=== PATIENT | female | born 1975 | race Two or more races ===

== ENCOUNTER 2016-07-04 11:37 | Inpatient (IN) | payer SELFPAY ==
[~2016-07-04] VITALS: Ht 154.9 cm; Wt 96.3 kg
[2016-07-04] VITALS (14 sets, daily range): BP systolic 129–190; BP diastolic 56–85
[2016-07-04] MEDS ORDERED: IV NORMAL SALINE 1000ML BAG 1,000 ML IV SCH (12:16)
--- NOTE | 2016-07-04 12:18 | EKG ---
[facility] [address] [place] [address] Test Date: 2016-07-04 Test Time: 12:04:26 Pat Name: KIAH TAYLOR Department: Room: Gender: F Slip Tender: : 1975 Requested By: HAN REN Order Number: [id number] Reading MD: Measurements Intervals [place] Rate: 78 P: 42 WI: 148 QRS: 6 QRSD: 102 T: 138 QT: 392 QTc: 451 Interpretive Statements SINUS RHYTHM LEFT ATRIAL ABNORMALITY LVH WITH REPOLARIZATION ABNORMALITY RI6.01 Unconfirmed report No previous ECG available for comparison
[2016-07-04] MEDS ORDERED: ONDANSETRON PF 4 MG/2 ML VIAL. IV ONE (12:30)
[2016-07-04] MEDS: NICARDIPINE HCL 50 MG in IV NORMAL SALINE 250ML 250 ML IV PRN ×2 (12:33→17:58)
[2016-07-04] MEDS: FENTANYL PF 100 MCG/2 ML VIAL. IV PRN ×2 (12:34→17:57)
--- NOTE | 2016-07-04 12:37 | PHYS DOC ---
Past Medical History Past Medical History: Hypertension Past Surgical History: Alcohol Use: None Drug Use: None Adult General Chief Complaint Chief Complaint: HEADACHE HPI HPI Patient is a 40 year old female who presents with complaint of headache and right-sided pain that started yesterday. Patient states that her symptoms have progressed throughout the day today. Patient states that she has developed cramping in her right upper extremity and her right lower extremity. Patient denies any significant past medical history but states that she has had no episode in the past of sudden hypertension many years ago requiring treatment. Patient states that she is not on any blood pressure medication at this time. Patient denies any fevers, shortness of breath, or chest pain. Patient has not taken any medications to help with her symptoms. Patient rates her pain as 8 out of 10. Patient states that she has associated numbness in her right face and jaw. Review of Systems Review of Systems Constitutional: Denies fever or chills [] Eyes: Denies change in visual acuity, redness, or eye pain [] HENT: Denies nasal congestion or sore throat [] Respiratory: Denies cough or shortness of breath [] Cardiovascular: Denies chest pain or edema [] GI: Denies abdominal pain, nausea, vomiting, bloody stools or diarrhea [] : Denies dysuria or hematuria [] Musculoskeletal: Muscle cramping in right upper and lower extremity [] Integument: Denies rash or skin lesions [] Neurologic: Numbness in right face and jaw, headache [] Endocrine: Denies polyuria or polydipsia [] Current Medications Current Medications Current Medications Medications (Trade) Dose Ordered Sig/Amira Start Time Stop Time Status Last Admin Dose Admin Fentanyl Citrate 50 mcg 50 mcg PRN Q15MIN PRN 07/04/16 12:30 07/05/16 12:29 07/04/16 12:34 50 MCG Nicardipine HCl/ Sodium Chloride (Cardene/Iv Sodium Chloride 0.9% 250ml) 270 ml @ 0 mls/hr CONT PRN 07/04/16 12:15 07/04/16 12:33 25 MLS/HR Ondansetron HCl (Zofran) 4 mg 1X ONCE 07/04/16 12:30 07/04/16 12:31 DC 07/04/16 12:33 4 MG Sodium Chloride (Iv Sodium Chloride 0.9% 1000ml Bag) 1,000 ml @ 100 mls/hr Q10H 07/04/16 12:16 07/04/16 22:15 07/04/16 12:34 100 MLS/HR Allergies Allergies Allergies Coded Allergies Type Severity Reaction Last Updated Verified No Known Drug Allergies 07/04/16 No Physical Exam Physical Exam Constitutional: Alert, afebrile, hypertensive, appears in mild to moderate discomfort. [] HENT: Normocephalic, atraumatic, bilateral external ears normal, oropharynx moist, no oral exudates, nose normal. [] Eyes: PERRLA, EOMI, conjunctiva normal, no discharge. [] Neck: Normal range of motion, no tenderness, supple, no stridor. [] Cardiovascular:Heart rate regular rhythm, no murmur [] Lungs & Thorax: Bilateral breath sounds clear to auscultation [] Abdomen: Bowel sounds normal, soft, no tenderness, no masses, no pulsatile masses. [] Skin: Warm, dry, no erythema, no rash. [] Back: No tenderness, no CVA tenderness. [] Extremities: Right forearm and hand tenderness with muscle tightness, no cyanosis, no clubbing, ROM intact, no edema. [] Neurologic: Alert and oriented X 3, 4 out of 5 associate counsel strength in right hand, negative pronator drift, decreased sensation along right face to light touch. [] Current Patient Data Vital Signs Vital Signs Date Time Temp Pulse Resp B/P Pulse Ox O2 Delivery O2 Flow Rate FiO2 07/04/16 11:50 98.2 79 20 281/154 99 Room Air 98.2 Lab Values Laboratory Tests Test 07/04/16 12:04 07/04/16 12:13 White Blood Count 6.2x10^3/uL (4.0-11.0) Red Blood Count 4.96x10^6/uL (3.50-5.40) Hemoglobin 12.4g/dL (12.0-15.5) Hematocrit 37.9% (36.0-47.0) Mean Corpuscular Volume 77fL (79-100) L Mean Corpuscular Hemoglobin 25pg (25-35) Mean Corpuscular Hemoglobin Concent 33g/dL (31-37) Red Cell Distribution Width 15.0% (11.5-14.5) H Platelet Count 205x10^3/uL (140-400) Neutrophils (%) (Auto) 65% (31-73) Lymphocytes (%) (Auto) 23% (24-48) L Monocytes (%) (Auto) 9% (0-9) Eosinophils (%) (Auto) 2% (0-3) Basophils (%) (Auto) 1% (0-3) Neutrophils # (Auto) 4.0x10^3uL (1.8-7.7) Lymphocytes # (Auto) 1.4x10^3/uL (1.0-4.8) Monocytes # (Auto) 0.6x10^3/uL (0.0-1.1) Eosinophils # (Auto) 0.1x10^3/uL (0.0-0.7) Basophils # (Auto) 0.0x10^3/uL (0.0-0.2) Prothrombin Time 12.6SEC (11.7-14.0) Prothrombin Time INR 1.0 (0.8-1.1) Sodium Level 143mmol/L (136-145) Potassium Level 3.6mmol/L (3.5-5.1) Chloride Level 106mmol/L (98-107) Carbon Dioxide Level 30mmol/L (21-32) Anion Gap 7 (6-14) Blood Urea Nitrogen 13mg/dL (7-20) Creatinine 0.8mg/dL (0.6-1.0) Estimated GFR (Cockcroft-Gault) 80.3 Glucose Level 93mg/dL (70-99) Calcium Level 8.9mg/dL (8.5-10.1) Magnesium Level 1.9mg/dL (1.8-2.4) Total Bilirubin 0.4mg/dL (0.2-1.0) Direct Bilirubin 0.1mg/dL (0.0-0.2) Aspartate Amino Transferase (AST) 14U/L (15-37) L Alanine Aminotransferase (ALT) 14U/L (14-59) Alkaline Phosphatase 77U/L (46-116) Creatine Kinase 111U/L (26-192) Creatine Kinase MB (Mass) 0.8ng/mL (0.0-3.6) Creatine Kinase MB Relative Index 0.7% (0-4) Troponin I Quantitative 0.018ng/mL (0.000-0.055) KC-Duj-B-Type Natriuretic Peptide 2308pg/mL (0-124) H Total Protein 7.3g/dL (6.4-8.2) Albumin 3.5g/dL (3.4-5.0) Thyroid Stimulating Hormone (TSH) 1.561uIU/mL (0.358-3.74) POC Troponin I 0.00ng/ml (<0.08) Laboratory Tests 07/04/16 12:04 Laboratory Tests 07/04/16 12:04 EKG EKG Interpreted by me: Heart rate 78, sinus rhythm, normal intervals, normal axis, T -wave inversions in the lateral leads, no acute ST elevations or depressions [] Radiology/Procedures Radiology/Procedures [facility] [address] [place] [address] IMAGING REPORT Signed PATIENT: KIAH TAYLOR ACCOUNT: [id number] : 1975 LOCATION: [address] [place] [address] AGE: 40 SEX: F EXAM STATUS: ADM IN ORD. PHYSICIAN: HAN REN MD REASON: headache, malignant hypertension PROCEDURE: HEAD WO CONTRAST EXAM: CT head without contrast. HISTORY: Headache, hypertension. TECHNIQUE: Computed tomography of the head was performed without intravenous contrast. COMPARISON: None. FINDINGS: There is a 6 x 5 mm hemorrhage within the left thalamus with mild surrounding edema. There is no significant mass effect. Longoria-white differentiation is preserved elsewhere. The ventricles are normal in size and position. The visualized paranasal sinuses appear clear. The orbits are unremarkable. The temporal bones are unremarkable. The calvarium reveals no suspicious lesions. IMPRESSION: 1. 6 x 5 mm hemorrhage within the left thalamus with mild surrounding vasogenic edema. These findings were called to Dr. Ren by Walter Bey on 07/04/2016 at 1330. *One or more of the following individualized dose reduction techniques were utilized for this examination: 1. Automated exposure control. 2. Adjustment of the mA and/or kV according to patient size. 3. Use of iterative reconstruction technique. DICTATED and SIGNED BY: TONEY BEY MD DATE: 07/04/16 1332 CC: HAN REN MD; ADAMS OLSEN MD ~ [facility] [address] [place], [place] [id number] IMAGING REPORT Signed PATIENT: KIAH TAYLOR ACCOUNT: [id number] : 1975 LOCATION: [address] [place] [address] AGE: 40 SEX: F EXAM STATUS: ADM IN ORD. PHYSICIAN: HAN REN MD REASON: critical hypertension, headache, rule out acute cardiopulmonary abnormality PROCEDURE: PORTABLE CHEST 1V Portable chest, 07/04/2016: History: Hypertension, headache The heart is mildly enlarged. The pulmonary vascularity is normal. No pulmonary infiltrates are seen. There is no evidence of pleural fluid. IMPRESSION: 1. Cardiomegaly. 2. No acute abnormality is detected. DICTATED and SIGNED BY: VADIM REECE MD DATE: 07/04/16 1256 CC: HAN REN MD; ADAMS OLSEN MD ~ [] Course & Med Decision Making Course & Med Decision Making Pertinent Labs and Imaging studies reviewed. (See chart for details) The patient was started on a Cardene drip in the emergency department. CT scan revealed evidence of hemorrhagic stroke. I consulted Dr. Perez of neurosurgery who agreed with rapid control of blood pressure and further nonoperative management at this time. He agreed to follow with patient in hospital. I also consulted Dr. Espitia of cardiology to follow patient in hospital. Patient was admitted to Dr. Hughes and transferred to ICU for further care. Critical care time excluding procedures: 45 minutes Dragon Disclaimer Dragon Disclaimer This electronic medical record was generated, in whole or in part, using a voice recognition dictation system. Departure Departure Impression: Primary Impression: Hemorrhagic cerebrovascular accident (CVA) Additional Impression: Malignant hypertension Disposition: ADMITTED INPATIENT Admitting Physician: Gladys Hughes Condition: GUARDED Referrals: ADAMS OLSEN MD (PCP) Problem Qualifiers HAN REN MD Jul 04, 2016 12:37
[2016-07-04 12:43] LABS: BASO % 1 % (0-3); EOS % 2 % (0-3); HEMATOCRIT 37.9 % (36.0-47.0); HEMOGLOBIN 12.4 g/dL (12.0-15.5); LYMPH # 1.4 x10^3/uL (1.0-4.8); LYMPH % 23 % (24-48); MEAN CORPUSCULAR HEMOGLOBIN 25 pg (25-35); MEAN CORPUSCULAR HGB CONC 33 g/dL (31-37); MEAN CORPUSCULAR VOLUME 77 fL (79-100); MONO % 9 % (0-9); NEUT % 65 % (31-73); PLATELET COUNT 205 x10^3/uL (140-400); RED BLOOD COUNT 4.96 x10^6/uL (3.50-5.40); WHITE BLOOD COUNT 6.2 x10^3/uL (4.0-11.0)
[2016-07-04 12:45] LABS: CALCIUM 8.9 mg/dL (8.5-10.1); CREATININE 0.8 mg/dL (0.6-1.0); GFR 80.3; POTASSIUM 3.6 mmol/L (3.5-5.1)
[2016-07-04 12:50] LABS: ALBUMIN 3.5 g/dL (3.4-5.0); DIRECT BILIRUBIN 0.1 mg/dL (0.0-0.2); MAGNESIUM 1.9 mg/dL (1.8-2.4); TOTAL BILIRUBIN 0.4 mg/dL (0.2-1.0); TOTAL PROTEIN 7.3 g/dL (6.4-8.2)
[2016-07-04 12:54] LABS: PROTHROMBIN TIME PATIENT 12.6 SEC (11.7-14.0)
[2016-07-04 12:58] LABS: CKMB INDEX 0.7 % (0-4); CKMB MASS 0.8 ng/mL (0.0-3.6)
--- NOTE | 2016-07-04 12:59 | RAD ---
Portable chest, 07/04/2016: History: Hypertension, headache The heart is mildly enlarged. The pulmonary vascularity is normal. No pulmonary infiltrates are seen. There is no evidence of pleural fluid. IMPRESSION: 1. Cardiomegaly. 2. No acute abnormality is detected.
--- NOTE | 2016-07-04 13:07 | ACF ---
Admission Forms Criteria HEADACHES Clinical Indications for Admission to Inpatient Care (Place 'X' for any and all applicable criteria): Admission is indicated for ANY ONE of the following(1)(2)(3)(4): [X]I. Inpatient admission required rather than observational care (Also use Headaches: Observation Care as appropriate) because of ANY ONE of the following: [X]a) Severe pain requiring acute inpatient management [ ]b) Altered mental status that is severe or persistent [ ]c) Vomiting or dehydration that is severe or persistent [ ]d) New-onset focal neurologic deficit that is severe or persistent [X]e) Hypertension requiring inpatient treatment [ ]f) Severe (new) neurologic findings requiring inpatient care as indicated by ANY ONE of following(9)(10): [ ]1) Papilledema [ ]2) Cerebral edema [ ]3) Mass effect on CT scan [ ]4) Cerebral bleeding, ischemia, or vasospasm(16) [ ]5) Hydrocephalus(17) [ ]6) Uncontrolled seizures [ ]g) IV infusion of anticoagulation, platelet inhibitors vasoactive, or antiarrhythmic medication. [ ]h) Cerebral bleeding, hydrocephalus, or vasospasm monitoring (16) [ ]i) Increased intracranial pressure or cerebral edema monitoring (17) [ ]j) Other condition, treatment or monitoring requiring inpatient admission [ ]II. Unruptured but threatening aneurysm or vascular malformation [ ]III. Venous sinus thrombosis [ ]IV. Increased intracranial pressure [ ]V. Cerebral spinal fluid leak with decreased intracranial pressure [ ]. Medication-overuse headache that has failed all outpatient management options [ ]VII. Vasculitis (eg, giant cell (temporal) arteritis, central nervous system vasculitis) requiring IV corticosteroids, IV antithrombotic therapy, or inpatient monitoring (eg, visual symptoms or findings, other ischemic manifestations)[A](10)(11) Extended stay beyond goal length of stay may be needed for (27): [ ]a) Intractable migraine [ ]b) Subarachnoid or intracranial hemorrhage [ ]c) Malignant hypertension [ ]d) Detoxification from drug withdrawal in medication-overuse headache (29) The original [facility] content created by [facility] [employer] has been revised. The portions of the content which have been revised are identified through the use of italic text or in bold, and [employer] has neither reviewed nor approved the modified material.All other unmodified content is copyright [facility]. Please see references footnoted in the original [facility] edition 2016 Admission Criteria Met?: Yes DORIAN AC Jul 04, 2016 13:07
--- NOTE | 2016-07-04 13:38 | RAD ---
EXAM: CT head without contrast. HISTORY: Headache, hypertension. TECHNIQUE: Computed tomography of the head was performed without intravenous contrast. COMPARISON: None. FINDINGS: There is a 6 x 5 mm hemorrhage within the left thalamus with mild surrounding edema. There is no significant mass effect. Longoria-white differentiation is preserved elsewhere. The ventricles are normal in size and position. The visualized paranasal sinuses appear clear. The orbits are unremarkable. The temporal bones are unremarkable. The calvarium reveals no suspicious lesions. IMPRESSION: 1. 6 x 5 mm hemorrhage within the left thalamus with mild surrounding vasogenic edema. These findings were called to Dr. Valdez by Walter Bey on 07/04/2016 at 1330. *One or more of the following individualized dose reduction techniques were utilized for this examination: 1. Automated exposure control. 2. Adjustment of the mA and/or kV according to patient size. 3. Use of iterative reconstruction technique.
[2016-07-04] MEDS: IV NORMAL SALINE 1000ML BAG 1,000 ML IV SCH ×2 (13:45→22:42)
[2016-07-04] MEDS ORDERED: FENTANYL PF 100 MCG/2 ML VIAL. IV PRN (13:45)
[2016-07-04] MEDS ORDERED: ACETAMINOPHEN 325 MG TABLET. PO PRN (13:45)
[2016-07-04] MEDS ORDERED: ONDANSETRON PF 4 MG/2 ML VIAL. IV PRN ×2 (13:45→14:30)
[2016-07-04 13:48] LABS: BILIRUBIN,URINE NEGATIVE (NEG); GLUCOSE,URINE NEGATIVE (NEG); NITRITE,URINE NEGATIVE (NEG); PH,URINE 7.5; PROTEIN,URINE NEGATIVE (NEG-TRACE); UROBILINOGEN,URINE 0.2 mg/dL (0.2 mg/dL)
[2016-07-04 13:51] LABS: BARBITURATES NEG (NEG); BENZODIAZEPINES NEG (NEG); CANNABINOIDS NEG (NEG); COCAINE NEG (NEG); METHADONE NEG (NEG); OPIATES NEG (NEG); PHENCYCLIDINE NEG (NEG)
[2016-07-04 13:53] LABS: ETHANOL, URINE NEG (NEG)
[2016-07-04 14:09] LABS: BACTERIA,URINE 0 /HPF (0-FEW); SQUAMOUS EPITHELIAL CELL,UR OCC /LPF; WBC,URINE OCC /HPF (0-4)
--- NOTE | 2016-07-04 14:26 | PDOC1 ---
History and Physical Date of Admission Date of Admission 07/04/16 Identification/Chief Complaint Chief Complaint right side numbness Problems: Source Source: Chart review, Patient History of Present Illness History of Present Illness HPI HPI Patient is a 40 year old female who presents with complaint of headache and right-sided pain that started yesterday. P pT HAS HTN ON 4meds before, but not taking it coz not seeing any pcp anymore. Sinhala speaking. she started to have headache 3 ds ago, worse yesterday, with right side facial, arm and leg numbness, tingling, and weakness. speech, swallow is ok. + NAusea, no vomiting, + cough wo sputum. no fever, chills, diarrhea, constipation. PE right side weakness. BP >280 CT . 6 x 5 mm hemorrhage within the left thalamus with mild surrounding vasogenic edema. Past Medical History Cardiovascular: HTN Past Surgical History Past Surgical History: Family History Family History: Hypertension Social History Smoke: No ALCOHOL: none Drugs: None Current Problem List Problem List Problems Medical Problems: (1) Hemorrhagic cerebrovascular accident (CVA) Status: Acute (2) Malignant hypertension Status: Acute Current Medications Current Medications Current Medications Medications (Trade) Dose Ordered Sig/Amira Start Time Stop Time Status Last Admin Dose Admin Acetaminophen (Tylenol) 650 mg PRN Q4HRS PRN 07/04/16 13:45 07/05/16 13:44 Fentanyl Citrate (Fentanyl 2ml Vial) 50 mcg PRN Q15MIN PRN 07/04/16 12:30 07/05/16 12:29 07/04/16 12:34 50 MCG Fentanyl Citrate 50 mcg 50 mcg PRN Q2HR PRN 07/04/16 13:45 07/05/16 13:44 Nicardipine HCl/ Sodium Chloride (Cardene/Iv Sodium Chloride 0.9% 250ml) 270 ml @ 0 mls/hr CONT PRN 07/04/16 12:15 07/04/16 12:33 25 MLS/HR Ondansetron HCl (Zofran) 4 mg PRN Q8HRS PRN 07/04/16 13:45 07/05/16 13:44 Sodium Chloride (Iv Sodium Chloride 0.9% 1000ml Bag) 1,000 ml @ 100 mls/hr Q10H 07/04/16 13:45 07/05/16 13:44 Allergies Allergies Allergies Coded Allergies Type Severity Reaction Last Updated Verified No Known Drug Allergies 07/04/16 No ROS Review of System CONSTITUTIONAL: No fever or chills EYES: No recent changes SKIN: No rash or itching CARDIOVASCULAR: No chest pain, syncope, palpitations, or edema RESPIRATORY: No SOB or cough GASTROINTESTINAL: No nausea, vomiting or abdominal pain NEUROLOGICAL: No headaches or weakness ENDOCRINE: No cold or heat intolerance GENITOURINARY: No urgency or frequency of urination MUSCULOSKELETAL: No back pain or joint pain LYMPHATICS: No enlarged lymph nodes PSYCHIATRIC: No anxiety or depression Physical Exam Physical Exam GEN.: No apparent distress. Alert and oriented. HEENT: Head is normocephalic, atraumatic NECK: Supple. LUNGS: Clear to auscultation. HEART: RRR, S1, S2 present. Peripheral pulses intact ABDOMEN: Soft, nontender. Positive bowel sounds. EXTREMITIES: Without any cyanosis. NEUROLOGIC: Normal speech, normal tone. right side upper , lower ext weaker , 2/5, left side ok. sensation ok tongue towards to left side. PSYCHIATRIC: Normal affect, normal mood. SKIN: No ulcerations Vitals Vitals Vital Signs Date Time Temp Pulse Resp B/P Pulse Ox O2 Delivery O2 Flow Rate FiO2 07/04/16 13:07 78 26 169/91 99 07/04/16 12:45 Room Air 07/04/16 11:50 98.2 98.2 Labs Labs Laboratory Tests Test 07/04/16 12:04 07/04/16 12:13 07/04/16 13:20 07/04/16 13:25 White Blood Count 6.2x10^3/uL (4.0-11.0) Red Blood Count 4.96x10^6/uL (3.50-5.40) Hemoglobin 12.4g/dL (12.0-15.5) Hematocrit 37.9% (36.0-47.0) Mean Corpuscular Volume 77fL (79-100) Mean Corpuscular Hemoglobin 25pg (25-35) Mean Corpuscular Hemoglobin Concent 33g/dL (31-37) Red Cell Distribution Width 15.0% (11.5-14.5) Platelet Count 205x10^3/uL (140-400) Neutrophils (%) (Auto) 65% (31-73) Lymphocytes (%) (Auto) 23% (24-48) Monocytes (%) (Auto) 9% (0-9) Eosinophils (%) (Auto) 2% (0-3) Basophils (%) (Auto) 1% (0-3) Neutrophils # (Auto) 4.0x10^3uL (1.8-7.7) Lymphocytes # (Auto) 1.4x10^3/uL (1.0-4.8) Monocytes # (Auto) 0.6x10^3/uL (0.0-1.1) Eosinophils # (Auto) 0.1x10^3/uL (0.0-0.7) Basophils # (Auto) 0.0x10^3/uL (0.0-0.2) Prothrombin Time 12.6SEC (11.7-14.0) Prothromb Time International Ratio 1.0 (0.8-1.1) Sodium Level 143mmol/L (136-145) Potassium Level 3.6mmol/L (3.5-5.1) Chloride Level 106mmol/L (98-107) Carbon Dioxide Level 30mmol/L (21-32) Anion Gap 7 (6-14) Blood Urea Nitrogen 13mg/dL (7-20) Creatinine 0.8mg/dL (0.6-1.0) Estimated GFR (Cockcroft-Gault) 80.3 Glucose Level 93mg/dL (70-99) Calcium Level 8.9mg/dL (8.5-10.1) Magnesium Level 1.9mg/dL (1.8-2.4) Total Bilirubin 0.4mg/dL (0.2-1.0) Direct Bilirubin 0.1mg/dL (0.0-0.2) Aspartate Amino Transf (AST/SGOT) 14U/L (15-37) Alanine Aminotransferase (ALT/SGPT) 14U/L (14-59) Alkaline Phosphatase 77U/L (46-116) Creatine Kinase 111U/L (26-192) Creatine Kinase MB (Mass) 0.8ng/mL (0.0-3.6) Creatine Kinase MB Relative Index 0.7% (0-4) Troponin I Quantitative 0.018ng/mL (0.000-0.055) LL-Aum-Q-Type Natriuretic Peptide 2308pg/mL (0-124) Total Protein 7.3g/dL (6.4-8.2) Albumin 3.5g/dL (3.4-5.0) Bedside Troponin I 0.00ng/ml (<0.08) Urine Color Yellow Urine Clarity Clear Urine pH 7.5 Urine Specific [place] 1.010 Urine Protein Negativemg/dL (NEG-TRACE) Urine Glucose (UA) Negativemg/dL (NEG) Urine Ketones (Stick) Negativemg/dL (NEG) Urine Blood Trace (NEG) Urine Nitrite Negative (NEG) Urine Bilirubin Negative (NEG) Urine Urobilinogen Dipstick 0.2mg/dL (0.2 mg/dL) Urine Leukocyte Esterase Negative (NEG) Urine RBC 1-2/HPF (0-2) Urine WBC Occ/HPF (0-4) Urine Squamous Epithelial Cells Occ/LPF Urine Amorphous Sediment Present/HPF Urine Bacteria 0/HPF (0-FEW) Urine Mucus Mod/LPF Urine Opiates Screen Neg (NEG) Urine Methadone Screen Neg (NEG) Urine Barbiturates Neg (NEG) Urine Phencyclidine Screen Neg (NEG) Urine Amphetamine/Methamphetamine Neg (NEG) Urine Benzodiazepines Screen Neg (NEG) Urine Cocaine Screen Neg (NEG) Urine Cannabinoids Screen Neg (NEG) Urine Ethyl Alcohol Neg (NEG) Bedside Urine HCG, Qualitative Hcg negative (Negative) Laboratory Tests Test 07/04/16 12:04 07/04/16 12:13 07/04/16 13:20 07/04/16 13:25 White Blood Count 6.2x10^3/uL (4.0-11.0) Red Blood Count 4.96x10^6/uL (3.50-5.40) Hemoglobin 12.4g/dL (12.0-15.5) Hematocrit 37.9% (36.0-47.0) Mean Corpuscular Volume 77fL (79-100) Mean Corpuscular Hemoglobin 25pg (25-35) Mean Corpuscular Hemoglobin Concent 33g/dL (31-37) Red Cell Distribution Width 15.0% (11.5-14.5) Platelet Count 205x10^3/uL (140-400) Neutrophils (%) (Auto) 65% (31-73) Lymphocytes (%) (Auto) 23% (24-48) Monocytes (%) (Auto) 9% (0-9) Eosinophils (%) (Auto) 2% (0-3) Basophils (%) (Auto) 1% (0-3) Neutrophils # (Auto) 4.0x10^3uL (1.8-7.7) Lymphocytes # (Auto) 1.4x10^3/uL (1.0-4.8) Monocytes # (Auto) 0.6x10^3/uL (0.0-1.1) Eosinophils # (Auto) 0.1x10^3/uL (0.0-0.7) Basophils # (Auto) 0.0x10^3/uL (0.0-0.2) Prothrombin Time 12.6SEC (11.7-14.0) Prothromb Time International Ratio 1.0 (0.8-1.1) Sodium Level 143mmol/L (136-145) Potassium Level 3.6mmol/L (3.5-5.1) Chloride Level 106mmol/L (98-107) Carbon Dioxide Level 30mmol/L (21-32) Anion Gap 7 (6-14) Blood Urea Nitrogen 13mg/dL (7-20) Creatinine 0.8mg/dL (0.6-1.0) Estimated GFR (Cockcroft-Gault) 80.3 Glucose Level 93mg/dL (70-99) Calcium Level 8.9mg/dL (8.5-10.1) Magnesium Level 1.9mg/dL (1.8-2.4) Total Bilirubin 0.4mg/dL (0.2-1.0) Direct Bilirubin 0.1mg/dL (0.0-0.2) Aspartate Amino Transf (AST/SGOT) 14U/L (15-37) Alanine Aminotransferase (ALT/SGPT) 14U/L (14-59) Alkaline Phosphatase 77U/L (46-116) Creatine Kinase 111U/L (26-192) Creatine Kinase MB (Mass) 0.8ng/mL (0.0-3.6) Creatine Kinase MB Relative Index 0.7% (0-4) Troponin I Quantitative 0.018ng/mL (0.000-0.055) JB-Ivp-Y-Type Natriuretic Peptide 2308pg/mL (0-124) Total Protein 7.3g/dL (6.4-8.2) Albumin 3.5g/dL (3.4-5.0) Bedside Troponin I 0.00ng/ml (<0.08) Urine Color Yellow Urine Clarity Clear Urine pH 7.5 Urine Specific [place] 1.010 Urine Protein Negativemg/dL (NEG-TRACE) Urine Glucose (UA) Negativemg/dL (NEG) Urine Ketones (Stick) Negativemg/dL (NEG) Urine Blood Trace (NEG) Urine Nitrite Negative (NEG) Urine Bilirubin Negative (NEG) Urine Urobilinogen Dipstick 0.2mg/dL (0.2 mg/dL) Urine Leukocyte Esterase Negative (NEG) Urine RBC 1-2/HPF (0-2) Urine WBC Occ/HPF (0-4) Urine Squamous Epithelial Cells Occ/LPF Urine Amorphous Sediment Present/HPF Urine Bacteria 0/HPF (0-FEW) Urine Mucus Mod/LPF Urine Opiates Screen Neg (NEG) Urine Methadone Screen Neg (NEG) Urine Barbiturates Neg (NEG) Urine Phencyclidine Screen Neg (NEG) Urine Amphetamine/Methamphetamine Neg (NEG) Urine Benzodiazepines Screen Neg (NEG) Urine Cocaine Screen Neg (NEG) Urine Cannabinoids Screen Neg (NEG) Urine Ethyl Alcohol Neg (NEG) Bedside Urine HCG, Qualitative Hcg negative (Negative) VTE Prophylaxis Ordered VTE Prophylaxis Devices: Yes VTE Pharmacological Prophylaxi: No Assessment/Plan Assessment/Plan 1. 6 x 5 mm hemorrhage within the left thalamus with mild surrounding vasogenic edema. 2. right side weakness, numbness 2/2 1 3. HTN emergency plan: 1. neuro, neurosx consult 2. on nicardipine drip 3. iCU 4. add lisinopril, amlodipine for now gi ppx neuro check check renal A US PTOT CAMPBELL RAMIREZ MD Jul 04, 2016 14:26
[2016-07-04] MEDS ORDERED: AMLODIPINE BESYLATE 10 MG TABLET PO SCH (15:00)
--- NOTE | 2016-07-04 15:08 | PDOC2 ---
CARDIAC CONSULT DATE OF CONSULT Date of Consult DATE: 07/04/16 TIME: 14:47 REASON FOR CONSULT Reason for Consult: Malignant HTN, CVA REFERRING PHYSICIAN Referring Physician: Courtney SOURCE Source: Chart review, Patient HISTORY OF PRESENT ILLNESS HISTORY OF PRESENT ILLNESS This is a pleasant 40 yo female admitted for complains of stroke symptoms and noted very high blood pressure. 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 Also noted throbbing right unilateral head with black floaters in her visual field. Also cramping to her right arm and right leg but denies any chest pain, dizziness. She is significant for past history of HTN particularly during her pregnancies. Denies any recreational drug use, tobacco , ETOH. She does not take energy drinks or any routine home medications. Denies any past hypothyroidism, no past ELLE. Denies any CVA, migraines or family hx of aneurysm. No DM nor gestational DM. Currently her PERERA better but remains to have right side face tingling/numbness PAST MEDICAL HISTORY Past Medical History PIH otherwise no other medical history Grav: 5 Para: 3 PAST SURGICAL HISTORY Past Surgical History: (x1) FAMILY HISTORY Family History: Heart Disease (both parents) SOCIAL HISTORY Smoke: No ALCOHOL: none Drugs: None Lives: with Family CURRENT MEDICATIONS CURRENT MEDICATIONS Current Medications Medications (Trade) Dose Ordered Sig/Amira Route PRN Reason Start Time Stop Time Status Last Admin Dose Admin Nicardipine HCl/ Sodium Chloride (Cardene/Iv Sodium Chloride 0.9% 250ml) 270 ml @ 0 mls/hr CONT PRN IV ELEVATED BP, SEE COMMENTS 07/04/16 12:15 07/04/16 12:33 Fentanyl Citrate 50 mcg 50 mcg PRN Q15MIN PRN IV PAIN GREATER THAN 07/0507/04/16 12:30 07/05/16 12:29 07/04/16 12:34 Sodium Chloride (Iv Sodium Chloride 0.9% 1000ml Bag) 1,000 ml @ 100 mls/hr Q10H IV 07/04/16 12:16 07/04/16 22:15 07/04/16 12:34 Ondansetron HCl (Zofran) 4 mg 1X ONCE IV 07/04/16 12:30 07/04/16 12:31 DC 07/04/16 12:33 ALLERGIES ALLERGIES: Coded Allergies: No Known Drug Allergies (Unverified , 07/04/16) ROS Review of System 14 point ROS evaluated with pertinent positives noted per HPI PHYSICAL EXAM General: Alert, Oriented X3, Cooperative, No acute distress HEENT: Atraumatic, Mucous membr. moist/pink, Other Lungs: Clear to auscultation, Normal air movement Heart: Regular rate, Normal S1, Normal S2, Other (4/6 sytolic murmur to LLS and [place] border; bounding peripheral pulses) Abdomen: Soft, No tenderness Extremities: No cyanosis, No edema Skin: No breakdown, No significant lesion Neuro: Normal speech, Sensation intact Psych/Mental Status: Mental status NL, Mood NL MUSCULOSKELETAL: Osteoarthritic changes both hands VITALS VITALS Vital Signs Date Time Temp Pulse Resp B/P Pulse Ox O2 Delivery O2 Flow Rate FiO2 07/04/16 13:07 78 26 169/91 99 07/04/16 12:45 Room Air 07/04/16 11:50 98.2 98.2 LABS Lab: Laboratory Tests Test 07/04/16 12:04 07/04/16 12:13 07/04/16 13:20 07/04/16 13:25 White Blood Count 6.2x10^3/uL (4.0-11.0) Red Blood Count 4.96x10^6/uL (3.50-5.40) Hemoglobin 12.4g/dL (12.0-15.5) Hematocrit 37.9% (36.0-47.0) Mean Corpuscular Volume 77fL (79-100) Mean Corpuscular Hemoglobin 25pg (25-35) Mean Corpuscular Hemoglobin Concent 33g/dL (31-37) Red Cell Distribution Width 15.0% (11.5-14.5) Platelet Count 205x10^3/uL (140-400) Neutrophils (%) (Auto) 65% (31-73) Lymphocytes (%) (Auto) 23% (24-48) Monocytes (%) (Auto) 9% (0-9) Eosinophils (%) (Auto) 2% (0-3) Basophils (%) (Auto) 1% (0-3) Neutrophils # (Auto) 4.0x10^3uL (1.8-7.7) Lymphocytes # (Auto) 1.4x10^3/uL (1.0-4.8) Monocytes # (Auto) 0.6x10^3/uL (0.0-1.1) Eosinophils # (Auto) 0.1x10^3/uL (0.0-0.7) Basophils # (Auto) 0.0x10^3/uL (0.0-0.2) Prothrombin Time 12.6SEC (11.7-14.0) Prothromb Time International Ratio 1.0 (0.8-1.1) Sodium Level 143mmol/L (136-145) Potassium Level 3.6mmol/L (3.5-5.1) Chloride Level 106mmol/L (98-107) Carbon Dioxide Level 30mmol/L (21-32) Anion Gap 7 (6-14) Blood Urea Nitrogen 13mg/dL (7-20) Creatinine 0.8mg/dL (0.6-1.0) Estimated GFR (Cockcroft-Gault) 80.3 Glucose Level 93mg/dL (70-99) Calcium Level 8.9mg/dL (8.5-10.1) Magnesium Level 1.9mg/dL (1.8-2.4) Total Bilirubin 0.4mg/dL (0.2-1.0) Direct Bilirubin 0.1mg/dL (0.0-0.2) Aspartate Amino Transf (AST/SGOT) 14U/L (15-37) Alanine Aminotransferase (ALT/SGPT) 14U/L (14-59) Alkaline Phosphatase 77U/L (46-116) Creatine Kinase 111U/L (26-192) Creatine Kinase MB (Mass) 0.8ng/mL (0.0-3.6) Creatine Kinase MB Relative Index 0.7% (0-4) Troponin I Quantitative 0.018ng/mL (0.000-0.055) XP-Duk-U-Type Natriuretic Peptide 2308pg/mL (0-124) Total Protein 7.3g/dL (6.4-8.2) Albumin 3.5g/dL (3.4-5.0) Bedside Troponin I 0.00ng/ml (<0.08) Urine Color Yellow Urine Clarity Clear Urine pH 7.5 Urine Specific [place] 1.010 Urine Protein Negativemg/dL (NEG-TRACE) Urine Glucose (UA) Negativemg/dL (NEG) Urine Ketones (Stick) Negativemg/dL (NEG) Urine Blood Trace (NEG) Urine Nitrite Negative (NEG) Urine Bilirubin Negative (NEG) Urine Urobilinogen Dipstick 0.2mg/dL (0.2 mg/dL) Urine Leukocyte Esterase Negative (NEG) Urine RBC 1-2/HPF (0-2) Urine WBC Occ/HPF (0-4) Urine Squamous Epithelial Cells Occ/LPF Urine Amorphous Sediment Present/HPF Urine Bacteria 0/HPF (0-FEW) Urine Mucus Mod/LPF Urine Opiates Screen Neg (NEG) Urine Methadone Screen Neg (NEG) Urine Barbiturates Neg (NEG) Urine Phencyclidine Screen Neg (NEG) Urine Amphetamine/Methamphetamine Neg (NEG) Urine Benzodiazepines Screen Neg (NEG) Urine Cocaine Screen Neg (NEG) Urine Cannabinoids Screen Neg (NEG) Urine Ethyl Alcohol Neg (NEG) Bedside Urine HCG, Qualitative Hcg negative (Negative) ASSESSMENT/PLAN ASSESSMENT/PLAN 1. Malignant HTN: initial reading of 281/154, suspect hypertensive heart disease. EKG SR with LVH. 2. Hemorrhagic CVA: 6 x 5 mm hemorrhage within the left thalamus with mild surrounding vasogenic edema per CT. Related to #1 3. Right unilateral PERERA with facial paresthesia/visual floaters: related to #2 Recommendations 1. Continue with cardene, titrate as warranted, Maintain BP at high end of normal, 2. BP parameters to defer to neurosurgery/neurology 3. TSH, lipid panel 4. TTE 5. Obtain bedside swallow eval before starting any po regimen. 6. Renal duplex pending Problems: RIC WILKERSON APRN Jul 04, 2016 15:08
[2016-07-04] MEDS ORDERED: IOHEXOL 350 MG/ML 100ML VIAL. IV ONE (16:45)
[2016-07-04] MEDS ORDERED: CONTRAST GIVEN MC PRN (17:00)
--- NOTE | 2016-07-04 17:50 | PDOC2 ---
NEUROLOGY CONSULT Date of Admission Date of Admission DATE: 07/04/16 TIME: 17:32 Reason for Consult Reason for Consult: IMPRESSION: Acute left thalamus 6 mm x 5 mm hemorrhage with surrounding vasogenic edema. Hypertensive encephalopathy. Hypertensive emergency, BP 281/154 mmHg. Malignant HTN, not treated. Right side numbness, tingling, cramping and weakness. Cardiomegaly. RECOMMENDATIONS/PLAN: BP control, no high than 150-160/90 mmHg. CTA Carotid A US + Doppler. Echo Treat medical diseases. OT/OT. HISTORY OF THE PRESENT ILLNESS: 40-y-old female patient with Hx of HTN during about 7 years ago. She has not search medical attention nor treated for her HTN. She developed symptoms of right side face and extremities numbness, tingling and weakness, but mainly described as cramping in right UE and LE. She came to ER of [facility] and her BP was 281/[address] revealed ICH. PAST MEDICAL HISTORY: Please see above. PAST SURGERY HISTORY: . ALLERGY: Unknown MEDICATIONS: Refer to [facility] FAMILY HISTORY: Heart disease. SOCIAL HISTORY: Lives at home. Denies smoking, drinking, and illicit drug use. H REVIEW OF SYSTEMS: Constitutional: No malnutrition, weight loss, cachexia. Head: No traumatic brain or head injury. Skin: No edema, or rash. Ear: No infection, tinnitus. Eyes: No vision loss or color blindness. Nose: No bleeding or purulent discharges. Hearing: No hearing decrease. Neck: No injury. Breast: No history of cancer, masses,or discharges. Cardiac: HTN. Pulmonary: No COPD. GI: No GI ulcer, GI bleeding. Urinary/genital: No dysuria, hematuria, incontinence, urinary retention. Endocrinologic: No cousin face, craniofacial dysmorphism, polydactyly. Skeletomuscular: No muscular atrophy, deformity. Neurological: see HP. Psychiatric: Denies drug use/abuse. Otherwise, not [id number] review of systems. PHYSICAL EXAMINATION: General appearance is in acute distress. HEENT: Normocephalic and nontraumatic. Eyes, nose, ears, and throat are unremarkable. Neck is supple. No lymphadenopathy. No crepitus. Cardiovascular: S1, S2, regular rate and rhythm. Pulmonary: Clear to auscultation bilaterally. Abdomen: Bowel sounds are positive. Abdomen is soft, nontender, and nondistended. Extremities: No rash, lesions, or edema. No restriction of range of motion NEUROLOGICAL EXAMINATION: Awake. Oriented to time, place and person. PERRL. EOMI. CN: no obvious focal findings. Muscle tone: within normal. Muscle strength: right side 4-, left side 5. DTR: 2 Plantar reflex: Flexor response bilaterally Gait: not examined. Sensory exam: seemed decreased in right side. No obvious cerebellar signs elicited, but horizontal nystagmus noted. F-T-N test fine. Current Medications Current Medications Current Medications Nicardipine HCl/ Sodium Chloride (Cardene/Iv Sodium Chloride 0.9% 250ml) 270 ml @ 0 mls/hr CONT PRN IV ELEVATED BP, SEE COMMENTS Last administered on 07/04/16 12:33; Start 07/04/16 at 12:15 Fentanyl Citrate 50 mcg 50 mcg PRN Q15MIN PRN IV PAIN GREATER THAN 3/10 Last administered on 07/04/16 12:34; Start 07/04/16 at 12:30; Stop 07/05/16 at 12:29 Sodium Chloride (Iv Sodium Chloride 0.9% 1000ml Bag) 1,000 ml @ 100 mls/hr Q10H IV Last administered on 07/04/16 12:34; Start 07/04/16 at 12:16; Stop at 22:15 Ondansetron HCl (Zofran) 4 mg 1X ONCE IV Last administered on 07/04/16 12:33; Start 07/04/16 at 12:30; Stop 07/04/16 at 12:31; Status DC Ondansetron HCl (Zofran) 4 mg PRN Q8HRS PRN IV NAUSEA/VOMITING; Start 07/04/16 at 13:45; Stop 07/04/16 at 16:28; Status DC Fentanyl Citrate 50 mcg 50 mcg PRN Q2HR PRN IV PAIN; Start 07/04/16 at 13:45; Stop 07/05/16 at 13:44 Sodium Chloride (Iv Sodium Chloride 0.9% 1000ml Bag) 1,000 ml @ 100 mls/hr Q10H IV ; Start 07/04/16 at 13:45; Stop 07/05/16 at 13:44 Acetaminophen (Tylenol) 650 mg PRN Q4HRS PRN PO FEVER; Start 07/04/16 at 13:45; Stop 07/04/16 at 14:38; Status DC Acetaminophen (Tylenol) 650 mg PRN Q6HRS PRN PO MILD PAIN / TEMP; Start at 14:30 Ondansetron HCl (Zofran) 4 mg PRN Q6HRS PRN IV NAUSEA/VOMITING; Start 07/04/16 at 14:30 Lisinopril (Prinivil) 40 mg DAILY PO ; Start 07/05/16 at 09:00; Stop 07/05/16 at 09:00; Status DC Amlodipine Besylate (Norvasc) 10 mg DAILY PO ; Start 07/05/16 at 09:00; Stop 02/11 at 09:00; Status DC Amlodipine Besylate (Norvasc) 10 mg DAILY PO ; Start 07/04/16 at 15:00 Lisinopril (Prinivil) 40 mg DAILY PO ; Start 07/04/16 at 15:00 Pantoprazole Sodium (Protonix) 40 mg DAILYAC PO ; Start 07/05/16 at 07:30 Iohexol (Omnipaque 350 Mg/ml) 75 ml 1X ONCE IV Last administered on 07/04/16t 17:03; Start 07/04/16 at 16:45; Stop 07/04/16 at 16:47; Status DC Info (Do NOT chart on this entry -- for MONITORING) 1 each PRN DAILY PRN MC SEE COMMENTS; Start 07/04/16 at 17:00; Stop 07/06/16 at 16:59 Allergies Allergies: Coded Allergies: No Known Drug Allergies (Unverified , 07/04/16) Vitals VITALS Vital Signs Date Time Temp Pulse Resp B/P Pulse Ox O2 Delivery O2 Flow Rate FiO2 07/04/16 15:30 90 16 189/76 97 Room Air 07/04/16 14:45 98.1 98.1 Labs Labs Laboratory Tests Test 07/04/16 12:04 07/04/16 12:13 07/04/16 13:20 07/04/16 13:25 White Blood Count 6.2x10^3/uL (4.0-11.0) Red Blood Count 4.96x10^6/uL (3.50-5.40) Hemoglobin 12.4g/dL (12.0-15.5) Hematocrit 37.9% (36.0-47.0) Mean Corpuscular Volume 77fL (79-100) Mean Corpuscular Hemoglobin 25pg (25-35) Mean Corpuscular Hemoglobin Concent 33g/dL (31-37) Red Cell Distribution Width 15.0% (11.5-14.5) Platelet Count 205x10^3/uL (140-400) Neutrophils (%) (Auto) 65% (31-73) Lymphocytes (%) (Auto) 23% (24-48) Monocytes (%) (Auto) 9% (0-9) Eosinophils (%) (Auto) 2% (0-3) Basophils (%) (Auto) 1% (0-3) Neutrophils # (Auto) 4.0x10^3uL (1.8-7.7) Lymphocytes # (Auto) 1.4x10^3/uL (1.0-4.8) Monocytes # (Auto) 0.6x10^3/uL (0.0-1.1) Eosinophils # (Auto) 0.1x10^3/uL (0.0-0.7) Basophils # (Auto) 0.0x10^3/uL (0.0-0.2) Prothrombin Time 12.6SEC (11.7-14.0) Prothromb Time International Ratio 1.0 (0.8-1.1) Sodium Level 143mmol/L (136-145) Potassium Level 3.6mmol/L (3.5-5.1) Chloride Level 106mmol/L (98-107) Carbon Dioxide Level 30mmol/L (21-32) Anion Gap 7 (6-14) Blood Urea Nitrogen 13mg/dL (7-20) Creatinine 0.8mg/dL (0.6-1.0) Estimated GFR (Cockcroft-Gault) 80.3 Glucose Level 93mg/dL (70-99) Calcium Level 8.9mg/dL (8.5-10.1) Magnesium Level 1.9mg/dL (1.8-2.4) Total Bilirubin 0.4mg/dL (0.2-1.0) Direct Bilirubin 0.1mg/dL (0.0-0.2) Aspartate Amino Transf (AST/SGOT) 14U/L (15-37) Alanine Aminotransferase (ALT/SGPT) 14U/L (14-59) Alkaline Phosphatase 77U/L (46-116) Creatine Kinase 111U/L (26-192) Creatine Kinase MB (Mass) 0.8ng/mL (0.0-3.6) Creatine Kinase MB Relative Index 0.7% (0-4) Troponin I Quantitative 0.018ng/mL (0.000-0.055) VD-Uvq-O-Type Natriuretic Peptide 2308pg/mL (0-124) Total Protein 7.3g/dL (6.4-8.2) Albumin 3.5g/dL (3.4-5.0) Thyroid Stimulating Hormone (TSH) 1.561uIU/mL (0.358-3.74) Bedside Troponin I 0.00ng/ml (<0.08) Urine Color Yellow Urine Clarity Clear Urine pH 7.5 Urine Specific [employer] 1.010 Urine Protein Negativemg/dL (NEG-TRACE) Urine Glucose (UA) Negativemg/dL (NEG) Urine Ketones (Stick) Negativemg/dL (NEG) Urine Blood Trace (NEG) Urine Nitrite Negative (NEG) Urine Bilirubin Negative (NEG) Urine Urobilinogen Dipstick 0.2mg/dL (0.2 mg/dL) Urine Leukocyte Esterase Negative (NEG) Urine RBC 1-2/HPF (0-2) Urine WBC Occ/HPF (0-4) Urine Squamous Epithelial Cells Occ/LPF Urine Amorphous Sediment Present/HPF Urine Bacteria 0/HPF (0-FEW) Urine Mucus Mod/LPF Urine Opiates Screen Neg (NEG) Urine Methadone Screen Neg (NEG) Urine Barbiturates Neg (NEG) Urine Phencyclidine Screen Neg (NEG) Urine Amphetamine/Methamphetamine Neg (NEG) Urine Benzodiazepines Screen Neg (NEG) Urine Cocaine Screen Neg (NEG) Urine Cannabinoids Screen Neg (NEG) Urine Ethyl Alcohol Neg (NEG) Bedside Urine HCG, Qualitative Hcg negative (Negative) Laboratory Tests Test 07/04/16 12:04 07/04/16 12:13 07/04/16 13:20 07/04/16 13:25 White Blood Count 6.2x10^3/uL (4.0-11.0) Red Blood Count 4.96x10^6/uL (3.50-5.40) Hemoglobin 12.4g/dL (12.0-15.5) Hematocrit 37.9% (36.0-47.0) Mean Corpuscular Volume 77fL (79-100) Mean Corpuscular Hemoglobin 25pg (25-35) Mean Corpuscular Hemoglobin Concent 33g/dL (31-37) Red Cell Distribution Width 15.0% (11.5-14.5) Platelet Count 205x10^3/uL (140-400) Neutrophils (%) (Auto) 65% (31-73) Lymphocytes (%) (Auto) 23% (24-48) Monocytes (%) (Auto) 9% (0-9) Eosinophils (%) (Auto) 2% (0-3) Basophils (%) (Auto) 1% (0-3) Neutrophils # (Auto) 4.0x10^3uL (1.8-7.7) Lymphocytes # (Auto) 1.4x10^3/uL (1.0-4.8) Monocytes # (Auto) 0.6x10^3/uL (0.0-1.1) Eosinophils # (Auto) 0.1x10^3/uL (0.0-0.7) Basophils # (Auto) 0.0x10^3/uL (0.0-0.2) Prothrombin Time 12.6SEC (11.7-14.0) Prothromb Time International Ratio 1.0 (0.8-1.1) Sodium Level 143mmol/L (136-145) Potassium Level 3.6mmol/L (3.5-5.1) Chloride Level 106mmol/L (98-107) Carbon Dioxide Level 30mmol/L (21-32) Anion Gap 7 (6-14) Blood Urea Nitrogen 13mg/dL (7-20) Creatinine 0.8mg/dL (0.6-1.0) Estimated GFR (Cockcroft-Gault) 80.3 Glucose Level 93mg/dL (70-99) Calcium Level 8.9mg/dL (8.5-10.1) Magnesium Level 1.9mg/dL (1.8-2.4) Total Bilirubin 0.4mg/dL (0.2-1.0) Direct Bilirubin 0.1mg/dL (0.0-0.2) Aspartate Amino Transf (AST/SGOT) 14U/L (15-37) Alanine Aminotransferase (ALT/SGPT) 14U/L (14-59) Alkaline Phosphatase 77U/L (46-116) Creatine Kinase 111U/L (26-192) Creatine Kinase MB (Mass) 0.8ng/mL (0.0-3.6) Creatine Kinase MB Relative Index 0.7% (0-4) Troponin I Quantitative 0.018ng/mL (0.000-0.055) NK-Txf-R-Type Natriuretic Peptide 2308pg/mL (0-124) Total Protein 7.3g/dL (6.4-8.2) Albumin 3.5g/dL (3.4-5.0) Thyroid Stimulating Hormone (TSH) 1.561uIU/mL (0.358-3.74) Bedside Troponin I 0.00ng/ml (<0.08) Urine Color Yellow Urine Clarity Clear Urine pH 7.5 Urine Specific [employer] 1.010 Urine Protein Negativemg/dL (NEG-TRACE) Urine Glucose (UA) Negativemg/dL (NEG) Urine Ketones (Stick) Negativemg/dL (NEG) Urine Blood Trace (NEG) Urine Nitrite Negative (NEG) Urine Bilirubin Negative (NEG) Urine Urobilinogen Dipstick 0.2mg/dL (0.2 mg/dL) Urine Leukocyte Esterase Negative (NEG) Urine RBC 1-2/HPF (0-2) Urine WBC Occ/HPF (0-4) Urine Squamous Epithelial Cells Occ/LPF Urine Amorphous Sediment Present/HPF Urine Bacteria 0/HPF (0-FEW) Urine Mucus Mod/LPF Urine Opiates Screen Neg (NEG) Urine Methadone Screen Neg (NEG) Urine Barbiturates Neg (NEG) Urine Phencyclidine Screen Neg (NEG) Urine Amphetamine/Methamphetamine Neg (NEG) Urine Benzodiazepines Screen Neg (NEG) Urine Cocaine Screen Neg (NEG) Urine Cannabinoids Screen Neg (NEG) Urine Ethyl Alcohol Neg (NEG) Bedside Urine HCG, Qualitative Hcg negative (Negative) MARIN GONZALEZ MD Jul 04, 2016 17:50
--- NOTE | 2016-07-04 17:56 | CARD ---
APPROVED REPORT EXAM: Two-dimensional and M-mode echocardiogram with Doppler and color Doppler. Other Information Quality : GoodHR: 83bpm Rhythm : NSR INDICATION Malignant HTN RISK FACTORS Hypertension 2D DIMENSIONS RVDd2.8 (2.9-3.5cm)Left Atrium(2D)4.2 (1.6-4.0cm) IVSd1.6 (0.7-1.1cm)Aortic Root(2D)3.1 (2.0-3.7cm) LVDd4.6 (3.9-5.9cm)LVOT Diameter2.4 (1.8-2.4cm) PWd1.6 (0.7-1.1cm)LVDs2.8 (2.5-4.0cm) FS (%) 39.2 %SV69.3 ml LVEF(%)69.7 (>50%) Aortic Valve AoV Peak Akira.231.9cm/sAoV VTI33.8cm AO Peak GR.21.5mmHgLVOT Peak Akira.171.1cm/s AO Mean GR.12mmHgAVA (VMAX)3.33cm2 Mitral Valve MV E Ihbnookv721.7cm/sMV E Peak Gr.5mmHg MV DECEL [id number] A Nyrermki783.4cm/s MV E Mean Gr.3mmHgE/A Ratio0.8 MV A [id number] Pulmonary Valve PV Peak Oxpzzavj042.0cm/s Pulmonary Vein S1 Ncrsmmff71.2cm/sD2 Hgnekfxj72.0cm/s PVa [id number] LEFT VENTRICLE The left ventricle cavity is small. There is moderate to moderate severe concentric left ventricular hypertrophy. The left ventricular systolic function is normal and the ejection fraction is within nor mal range. The Ejection Fraction is >65%. There is normal LV segmental wall motion. Transmitral Doppl er flow pattern is Grade I-abnormal relaxation pattern. RIGHT VENTRICLE The right ventricle is normal size. There is normal right ventricular wall thickness. The right ventr icular systolic function is normal. ATRIA The left atrium is mildly dilated. The right atrium size is normal. The interatrial septum is intact with no evidence for an atrial septal defect or patent foramen ovale as noted on 2-D or Doppler imagi ng. AORTIC VALVE The aortic valve is normal in structure and function. Doppler and Color Flow revealed no significant aortic regurgitation. There is no significant aortic valvular stenosis. MITRAL VALVE The mitral valve is normal in structure and function. There is no evidence of mitral valve prolapse. There is no mitral valve stenosis. Doppler and Color Flow revealed trace mitral valve regurgitation. TRICUSPID VALVE The tricuspid valve is normal in structure and function. Doppler and Color Flow revealed no tricuspid valve regurgitation noted. PULMONIC VALVE The pulmonary valve is normal in structure and function. Doppler and Color Flow revealed no pulmonic valvular regurgitation. There is no pulmonic valvular stenosis. GREAT VESSELS The aortic root is normal in size. The ascending aorta is normal in size. The pulmonary artery is nor mal. The IVC is normal in size and collapses >50% with inspiration. PERICARDIAL EFFUSION There is no evidence of significant pericardial effusion. Critical Notification Critical Value: No <Conclusion> The left ventricle cavity is small. There is moderate to moderate severe concentric left ventricular hypertrophy. The left ventricular systolic function is normal and the ejection fraction is within normal range. The Ejection Fraction is >65%. There is no significant aortic valvular stenosis. Doppler and Color Flow revealed no significant aortic regurgitation. Doppler and Color Flow revealed trace mitral valve regurgitation. Doppler and Color Flow revealed no tricuspid valve regurgitation noted.
--- NOTE | 2016-07-04 18:05 | RAD ---
PROCEDURE CTA head HISTORY Right-sided headache since yesterday, right upper and lower extremity cramping, right-sided facial numbness, hypertension TECHNIQUE Noncontrast CT imaging was performed of the head. After bolus of intravenous contrast, volumetric CT data was acquired of the head. Multiplanar reconstruction images to include MIP and 3D reconstruction images submitted. Exposure: One or more of the following individualized dose reduction techniques were utilized for this exam: 1. Automated exposure control. 2. Adjustment of the mA and/or kV according to patient size. 3. Use of iterative reconstruction technique. Contrast: 75 cc Omnipaque 350 COMPARISON None other than CT head exam earlier the same day at 1:24 p.m., this exam timed at 5:05 p.m.. FINDINGS Any determination of stenosis is based on NASCET criteria. On the noncontrast CT exam, there is again focus of hyperdensity of the left thalamus on the order of 0.7 cm transverse by 0.5 cm AP which has not convincingly changed, adjacent ill-defined low-density also similar compatible with adjacent vasogenic edema. No new focus of parenchymal hemorrhage is identified. There is no new midline shift. Ventricular size is stable, within normal limits in short time interval. Both vertebral arteries constitute the basilar artery. There is visualization of left PICA. Right AICA supplies the right PICA. Left AICA is very small and difficult to visualize. There is visualization of segments of bilateral superior cerebellar arteries, shared origins with the P1 segments bilaterally. There are bilateral posterior communicating arteries. There is visualization of the petrous, cavernous, and ophthalmic internal carotid arteries bilaterally. No significant increased arterial vascularity is seen near the left thalamic hemorrhage. There is small anterior communicating artery. No aneurysm or significant intracranial stenosis is identified. There is enhancement of the superior sagittal sinus and segment of the right transverse venous sinus, venous sinuses not fully evaluated on this exam. IMPRESSION 1. There is stable focus of acute parenchymal hemorrhage of the left thalamus with adjacent mild vasogenic edema. 2. No significant intracranial stenosis, aneurysm, or arteriovenous malformation is identified. Electronically signed by: Harry Dietrich MD (Jul 04, 2016 18:03:30)
[2016-07-04] MEDS: LISINOPRIL 40 MG TABLET. PO SCH (20:55)
[2016-07-04] MEDS: ACETAMINOPHEN 325 MG TABLET. PO PRN (20:55)
[2016-07-05] VITALS (19 sets, daily range): BP systolic 114–180; BP diastolic 62–109
[2016-07-05] MEDS: NICARDIPINE HCL 50 MG in IV NORMAL SALINE 250ML 250 ML IV PRN (00:59)
[2016-07-05] MEDS: ACETAMINOPHEN 325 MG TABLET. PO PRN ×3 (05:12→20:17)
[2016-07-05 05:40] LABS: BASO # 0.1 x10^3/uL (0.0-0.2); BASO % 1 % (0-3); EOS % 2 % (0-3); HEMOGLOBIN 11.9 g/dL (12.0-15.5); LYMPH # 1.8 x10^3/uL (1.0-4.8); LYMPH % 29 % (24-48); MEAN CORPUSCULAR HEMOGLOBIN 25 pg (25-35); MEAN CORPUSCULAR HGB CONC 32 g/dL (31-37); MEAN CORPUSCULAR VOLUME 78 fL (79-100); MONO % 8 % (0-9); NEUT % 60 % (31-73); PLATELET COUNT 199 x10^3/uL (140-400); RED BLOOD COUNT 4.73 x10^6/uL (3.50-5.40); RED CELL DISTRIBUTION WIDTH 15.4 % (11.5-14.5); WHITE BLOOD COUNT 6.2 x10^3/uL (4.0-11.0)
[2016-07-05 05:56] LABS: CALCIUM 8.2 mg/dL (8.5-10.1); CREATININE 0.7 mg/dL (0.6-1.0); GFR 93.6; POTASSIUM 3.4 mmol/L (3.5-5.1)
[2016-07-05 06:06] LABS: CHOLESTEROL/HDL RATIO 3.1
--- NOTE | 2016-07-05 07:22 | RAD ---
Carotid ultrasound, 07/04/2016: History: CVA Duplex evaluation of the carotid arteries in the neck was performed including grayscale, color-flow and spectral Doppler analysis. There is mild intimal thickening in the common carotid arteries and at the carotid bifurcations. No prominent focal plaque formation is seen. The Doppler data obtained from the bifurcations reveals no significant focal velocity elevation to suggest a hemodynamically significant carotid stenosis. The peak systolic velocity in the right internal carotid artery is 96 cm/s with an end-diastolic velocity of 16 cm/s. The peak systolic velocity in the left internal carotid artery is 66 cm/s with an end-diastolic velocity of 23 cm/s. Antegrade flow is present in both vertebral arteries in the neck. IMPRESSION: No duplex evidence of a significant carotid stenosis in the neck. Note: Stenosis calculations for CT, MRA and conventional angiography are based upon determination of the distal ICA diameter in accordance with the NASCET methodology. Stenosis calculations for Doppler studies are derived from validated velocity criteria which are known to correlate with NASCET methodology of determining stenosis.
--- NOTE | 2016-07-05 07:24 | RAD ---
Deep Doppler ultrasound of the renal arteries, 07/04/2016: History: Hypertension Doppler interrogation of the main renal arteries was performed including grayscale, color-flow and spectral Doppler analysis. No high velocities are seen in either main renal artery to suggest significant stenosis. No parvus/tardus phenomena is evident. The right kidney measures 12 cm in length, while the left kidney measures 11.9 cm. IMPRESSION: No duplex evidence of significant renal artery stenosis.
[2016-07-05] MEDS: LISINOPRIL 40 MG TABLET. PO SCH (08:46)
[2016-07-05] MEDS: PANTOPRAZOLE 40 MG TABLET. PO SCH (08:46)
--- NOTE | 2016-07-05 08:48 | PDOC ---
PROGRESS NOTES Chief Complaint Chief Complaint left thalamus hemorrhage Accelerated HTN, malignant right side weakness, and numbness HTN emergency History of Present Illness History of Present Illness NS following, feeling better, BP dropping OK change to PO meds lisinopril, amlodipine gi ppx continue neuro checks, ICU care until cleared by NS Vitals Vitals Vital Signs Date Time Temp Pulse Resp B/P Pulse Ox O2 Delivery O2 Flow Rate FiO2 07/05/16 08:46 68 147/74 07/05/16 07:42 Room Air 07/05/16 07:00 98.7 18 98 98.7 Physical Exam General: Alert, Oriented X3, Cooperative, No acute distress Heart: Regular rate, Normal S1, Normal S2, Other (4/6 sytolic murmur to LLS and [place] border; bounding peripheral pulses) Abdomen: Soft, No tenderness Extremities: No cyanosis, No edema Skin: No breakdown, No significant lesion Labs LABS Laboratory Tests Test 07/04/16 12:04 07/04/16 12:13 07/04/16 13:20 07/04/16 13:25 White Blood Count 6.2x10^3/uL (4.0-11.0) Red Blood Count 4.96x10^6/uL (3.50-5.40) Hemoglobin 12.4g/dL (12.0-15.5) Hematocrit 37.9% (36.0-47.0) Mean Corpuscular Volume 77fL (79-100) Mean Corpuscular Hemoglobin 25pg (25-35) Mean Corpuscular Hemoglobin Concent 33g/dL (31-37) Red Cell Distribution Width 15.0% (11.5-14.5) Platelet Count 205x10^3/uL (140-400) Neutrophils (%) (Auto) 65% (31-73) Lymphocytes (%) (Auto) 23% (24-48) Monocytes (%) (Auto) 9% (0-9) Eosinophils (%) (Auto) 2% (0-3) Basophils (%) (Auto) 1% (0-3) Neutrophils # (Auto) 4.0x10^3uL (1.8-7.7) Lymphocytes # (Auto) 1.4x10^3/uL (1.0-4.8) Monocytes # (Auto) 0.6x10^3/uL (0.0-1.1) Eosinophils # (Auto) 0.1x10^3/uL (0.0-0.7) Basophils # (Auto) 0.0x10^3/uL (0.0-0.2) Prothrombin Time 12.6SEC (11.7-14.0) Prothromb Time International Ratio 1.0 (0.8-1.1) Sodium Level 143mmol/L (136-145) Potassium Level 3.6mmol/L (3.5-5.1) Chloride Level 106mmol/L (98-107) Carbon Dioxide Level 30mmol/L (21-32) Anion Gap 7 (6-14) Blood Urea Nitrogen 13mg/dL (7-20) Creatinine 0.8mg/dL (0.6-1.0) Estimated GFR (Cockcroft-Gault) 80.3 Glucose Level 93mg/dL (70-99) Calcium Level 8.9mg/dL (8.5-10.1) Magnesium Level 1.9mg/dL (1.8-2.4) Total Bilirubin 0.4mg/dL (0.2-1.0) Direct Bilirubin 0.1mg/dL (0.0-0.2) Aspartate Amino Transf (AST/SGOT) 14U/L (15-37) Alanine Aminotransferase (ALT/SGPT) 14U/L (14-59) Alkaline Phosphatase 77U/L (46-116) Creatine Kinase 111U/L (26-192) Creatine Kinase MB (Mass) 0.8ng/mL (0.0-3.6) Creatine Kinase MB Relative Index 0.7% (0-4) Troponin I Quantitative 0.018ng/mL (0.000-0.055) SB-Jqu-[id number]-Type Natriuretic Peptide 2308pg/mL (0-124) Total Protein 7.3g/dL (6.4-8.2) Albumin 3.5g/dL (3.4-5.0) Thyroid Stimulating Hormone (TSH) 1.561uIU/mL (0.358-3.74) Bedside Troponin I 0.00ng/ml (<0.08) Urine Color Yellow Urine Clarity Clear Urine pH 7.5 Urine Specific [place] 1.010 Urine Protein Negativemg/dL (NEG-TRACE) Urine Glucose (UA) Negativemg/dL (NEG) Urine Ketones (Stick) Negativemg/dL (NEG) Urine Blood Trace (NEG) Urine Nitrite Negative (NEG) Urine Bilirubin Negative (NEG) Urine Urobilinogen Dipstick 0.2mg/dL (0.2 mg/dL) Urine Leukocyte Esterase Negative (NEG) Urine RBC 1-2/HPF (0-2) Urine WBC Occ/HPF (0-4) Urine Squamous Epithelial Cells Occ/LPF Urine Amorphous Sediment Present/HPF Urine Bacteria 0/HPF (0-FEW) Urine Mucus Mod/LPF Urine Opiates Screen Neg (NEG) Urine Methadone Screen Neg (NEG) Urine Barbiturates Neg (NEG) Urine Phencyclidine Screen Neg (NEG) Urine Amphetamine/Methamphetamine Neg (NEG) Urine Benzodiazepines Screen Neg (NEG) Urine Cocaine Screen Neg (NEG) Urine Cannabinoids Screen Neg (NEG) Urine Ethyl Alcohol Neg (NEG) Bedside Urine HCG, Qualitative Hcg negative (Negative) Test 07/05/16 05:15 White Blood Count 6.2x10^3/uL (4.0-11.0) Red Blood Count 4.73x10^6/uL (3.50-5.40) Hemoglobin 11.9g/dL (12.0-15.5) Hematocrit 37.0% (36.0-47.0) Mean Corpuscular Volume 78fL (79-100) Mean Corpuscular Hemoglobin 25pg (25-35) Mean Corpuscular Hemoglobin Concent 32g/dL (31-37) Red Cell Distribution Width 15.4% (11.5-14.5) Platelet Count 199x10^3/uL (140-400) Neutrophils (%) (Auto) 60% (31-73) Lymphocytes (%) (Auto) 29% (24-48) Monocytes (%) (Auto) 8% (0-9) Eosinophils (%) (Auto) 2% (0-3) Basophils (%) (Auto) 1% (0-3) Neutrophils # (Auto) 3.7x10^3uL (1.8-7.7) Lymphocytes # (Auto) 1.8x10^3/uL (1.0-4.8) Monocytes # (Auto) 0.5x10^3/uL (0.0-1.1) Eosinophils # (Auto) 0.1x10^3/uL (0.0-0.7) Basophils # (Auto) 0.1x10^3/uL (0.0-0.2) Sodium Level 143mmol/L (136-145) Potassium Level 3.4mmol/L (3.5-5.1) Chloride Level 108mmol/L (98-107) Carbon Dioxide Level 27mmol/L (21-32) Anion Gap 8 (6-14) Blood Urea Nitrogen 10mg/dL (7-20) Creatinine 0.7mg/dL (0.6-1.0) Estimated GFR (Cockcroft-Gault) 93.6 Glucose Level 98mg/dL (70-99) Calcium Level 8.2mg/dL (8.5-10.1) Triglycerides Level 92mg/dL (0-150) Cholesterol Level 171mg/dL (0-200) LDL Cholesterol, Calculated 98mg/dL (0-100) VLDL Cholesterol, Calculated 18mg/dL (0-40) HDL Cholesterol 55mg/dL (40-60) Cholesterol/HDL Ratio 3.1 Assessment and Plan Assessmemt and Plan doing better Problems Medical Problems: (1) Hemorrhagic cerebrovascular accident (CVA) Status: Acute (2) Malignant hypertension Status: Acute Problems: Comment Review of Relevant I have reviewed the following items luz maria (where applicable) has been applied. Labs Laboratory Tests Test 07/04/16 12:04 07/04/16 12:13 07/04/16 13:20 07/04/16 13:25 White Blood Count 6.2x10^3/uL (4.0-11.0) Red Blood Count 4.96x10^6/uL (3.50-5.40) Hemoglobin 12.4g/dL (12.0-15.5) Hematocrit 37.9% (36.0-47.0) Mean Corpuscular Volume 77fL (79-100) Mean Corpuscular Hemoglobin 25pg (25-35) Mean Corpuscular Hemoglobin Concent 33g/dL (31-37) Red Cell Distribution Width 15.0% (11.5-14.5) Platelet Count 205x10^3/uL (140-400) Neutrophils (%) (Auto) 65% (31-73) Lymphocytes (%) (Auto) 23% (24-48) Monocytes (%) (Auto) 9% (0-9) Eosinophils (%) (Auto) 2% (0-3) Basophils (%) (Auto) 1% (0-3) Neutrophils # (Auto) 4.0x10^3uL (1.8-7.7) Lymphocytes # (Auto) 1.4x10^3/uL (1.0-4.8) Monocytes # (Auto) 0.6x10^3/uL (0.0-1.1) Eosinophils # (Auto) 0.1x10^3/uL (0.0-0.7) Basophils # (Auto) 0.0x10^3/uL (0.0-0.2) Prothrombin Time 12.6SEC (11.7-14.0) Prothromb Time International Ratio 1.0 (0.8-1.1) Sodium Level 143mmol/L (136-145) Potassium Level 3.6mmol/L (3.5-5.1) Chloride Level 106mmol/L (98-107) Carbon Dioxide Level 30mmol/L (21-32) Anion Gap 7 (6-14) Blood Urea Nitrogen 13mg/dL (7-20) Creatinine 0.8mg/dL (0.6-1.0) Estimated GFR (Cockcroft-Gault) 80.3 Glucose Level 93mg/dL (70-99) Calcium Level 8.9mg/dL (8.5-10.1) Magnesium Level 1.9mg/dL (1.8-2.4) Total Bilirubin 0.4mg/dL (0.2-1.0) Direct Bilirubin 0.1mg/dL (0.0-0.2) Aspartate Amino Transf (AST/SGOT) 14U/L (15-37) Alanine Aminotransferase (ALT/SGPT) 14U/L (14-59) Alkaline Phosphatase 77U/L (46-116) Creatine Kinase 111U/L (26-192) Creatine Kinase MB (Mass) 0.8ng/mL (0.0-3.6) Creatine Kinase MB Relative Index 0.7% (0-4) Troponin I Quantitative 0.018ng/mL (0.000-0.055) GR-Yys-Y-Type Natriuretic Peptide 2308pg/mL (0-124) Total Protein 7.3g/dL (6.4-8.2) Albumin 3.5g/dL (3.4-5.0) Thyroid Stimulating Hormone (TSH) 1.561uIU/mL (0.358-3.74) Bedside Troponin I 0.00ng/ml (<0.08) Urine Color Yellow Urine Clarity Clear Urine pH 7.5 Urine Specific [place] 1.010 Urine Protein Negativemg/dL (NEG-TRACE) Urine Glucose (UA) Negativemg/dL (NEG) Urine Ketones (Stick) Negativemg/dL (NEG) Urine Blood Trace (NEG) Urine Nitrite Negative (NEG) Urine Bilirubin Negative (NEG) Urine Urobilinogen Dipstick 0.2mg/dL (0.2 mg/dL) Urine Leukocyte Esterase Negative (NEG) Urine RBC 1-2/HPF (0-2) Urine WBC Occ/HPF (0-4) Urine Squamous Epithelial Cells Occ/LPF Urine Amorphous Sediment Present/HPF Urine Bacteria 0/HPF (0-FEW) Urine Mucus Mod/LPF Urine Opiates Screen Neg (NEG) Urine Methadone Screen Neg (NEG) Urine Barbiturates Neg (NEG) Urine Phencyclidine Screen Neg (NEG) Urine Amphetamine/Methamphetamine Neg (NEG) Urine Benzodiazepines Screen Neg (NEG) Urine Cocaine Screen Neg (NEG) Urine Cannabinoids Screen Neg (NEG) Urine Ethyl Alcohol Neg (NEG) Bedside Urine HCG, Qualitative Hcg negative (Negative) Test 07/05/16 05:15 White Blood Count 6.2x10^3/uL (4.0-11.0) Red Blood Count 4.73x10^6/uL (3.50-5.40) Hemoglobin 11.9g/dL (12.0-15.5) Hematocrit 37.0% (36.0-47.0) Mean Corpuscular Volume 78fL (79-100) Mean Corpuscular Hemoglobin 25pg (25-35) Mean Corpuscular Hemoglobin Concent 32g/dL (31-37) Red Cell Distribution Width 15.4% (11.5-14.5) Platelet Count 199x10^3/uL (140-400) Neutrophils (%) (Auto) 60% (31-73) Lymphocytes (%) (Auto) 29% (24-48) Monocytes (%) (Auto) 8% (0-9) Eosinophils (%) (Auto) 2% (0-3) Basophils (%) (Auto) 1% (0-3) Neutrophils # (Auto) 3.7x10^3uL (1.8-7.7) Lymphocytes # (Auto) 1.8x10^3/uL (1.0-4.8) Monocytes # (Auto) 0.5x10^3/uL (0.0-1.1) Eosinophils # (Auto) 0.1x10^3/uL (0.0-0.7) Basophils # (Auto) 0.1x10^3/uL (0.0-0.2) Sodium Level 143mmol/L (136-145) Potassium Level 3.4mmol/L (3.5-5.1) Chloride Level 108mmol/L (98-107) Carbon Dioxide Level 27mmol/L (21-32) Anion Gap 8 (6-14) Blood Urea Nitrogen 10mg/dL (7-20) Creatinine 0.7mg/dL (0.6-1.0) Estimated GFR (Cockcroft-Gault) 93.6 Glucose Level 98mg/dL (70-99) Calcium Level 8.2mg/dL (8.5-10.1) Triglycerides Level 92mg/dL (0-150) Cholesterol Level 171mg/dL (0-200) LDL Cholesterol, Calculated 98mg/dL (0-100) VLDL Cholesterol, Calculated 18mg/dL (0-40) HDL Cholesterol 55mg/dL (40-60) Cholesterol/HDL Ratio 3.1 Laboratory Tests Test 07/04/16 12:04 07/04/16 12:13 07/04/16 13:20 07/04/16 13:25 White Blood Count 6.2x10^3/uL (4.0-11.0) Red Blood Count 4.96x10^6/uL (3.50-5.40) Hemoglobin 12.4g/dL (12.0-15.5) Hematocrit 37.9% (36.0-47.0) Mean Corpuscular Volume 77fL (79-100) Mean Corpuscular Hemoglobin 25pg (25-35) Mean Corpuscular Hemoglobin Concent 33g/dL (31-37) Red Cell Distribution Width 15.0% (11.5-14.5) Platelet Count 205x10^3/uL (140-400) Neutrophils (%) (Auto) 65% (31-73) Lymphocytes (%) (Auto) 23% (24-48) Monocytes (%) (Auto) 9% (0-9) Eosinophils (%) (Auto) 2% (0-3) Basophils (%) (Auto) 1% (0-3) Neutrophils # (Auto) 4.0x10^3uL (1.8-7.7) Lymphocytes # (Auto) 1.4x10^3/uL (1.0-4.8) Monocytes # (Auto) 0.6x10^3/uL (0.0-1.1) Eosinophils # (Auto) 0.1x10^3/uL (0.0-0.7) Basophils # (Auto) 0.0x10^3/uL (0.0-0.2) Prothrombin Time 12.6SEC (11.7-14.0) Prothromb Time International Ratio 1.0 (0.8-1.1) Sodium Level 143mmol/L (136-145) Potassium Level 3.6mmol/L (3.5-5.1) Chloride Level 106mmol/L (98-107) Carbon Dioxide Level 30mmol/L (21-32) Anion Gap 7 (6-14) Blood Urea Nitrogen 13mg/dL (7-20) Creatinine 0.8mg/dL (0.6-1.0) Estimated GFR (Cockcroft-Gault) 80.3 Glucose Level 93mg/dL (70-99) Calcium Level 8.9mg/dL (8.5-10.1) Magnesium Level 1.9mg/dL (1.8-2.4) Total Bilirubin 0.4mg/dL (0.2-1.0) Direct Bilirubin 0.1mg/dL (0.0-0.2) Aspartate Amino Transf (AST/SGOT) 14U/L (15-37) Alanine Aminotransferase (ALT/SGPT) 14U/L (14-59) Alkaline Phosphatase 77U/L (46-116) Creatine Kinase 111U/L (26-192) Creatine Kinase MB (Mass) 0.8ng/mL (0.0-3.6) Creatine Kinase MB Relative Index 0.7% (0-4) Troponin I Quantitative 0.018ng/mL (0.000-0.055) WP-Ymj-M-Type Natriuretic Peptide 2308pg/mL (0-124) Total Protein 7.3g/dL (6.4-8.2) Albumin 3.5g/dL (3.4-5.0) Thyroid Stimulating Hormone (TSH) 1.561uIU/mL (0.358-3.74) Bedside Troponin I 0.00ng/ml (<0.08) Urine Color Yellow Urine Clarity Clear Urine pH 7.5 Urine Specific [place] 1.010 Urine Protein Negativemg/dL (NEG-TRACE) Urine Glucose (UA) Negativemg/dL (NEG) Urine Ketones (Stick) Negativemg/dL (NEG) Urine Blood Trace (NEG) Urine Nitrite Negative (NEG) Urine Bilirubin Negative (NEG) Urine Urobilinogen Dipstick 0.2mg/dL (0.2 mg/dL) Urine Leukocyte Esterase Negative (NEG) Urine RBC 1-2/HPF (0-2) Urine WBC Occ/HPF (0-4) Urine Squamous Epithelial Cells Occ/LPF Urine Amorphous Sediment Present/HPF Urine Bacteria 0/HPF (0-FEW) Urine Mucus Mod/LPF Urine Opiates Screen Neg (NEG) Urine Methadone Screen Neg (NEG) Urine Barbiturates Neg (NEG) Urine Phencyclidine Screen Neg (NEG) Urine Amphetamine/Methamphetamine Neg (NEG) Urine Benzodiazepines Screen Neg (NEG) Urine Cocaine Screen Neg (NEG) Urine Cannabinoids Screen Neg (NEG) Urine Ethyl Alcohol Neg (NEG) Bedside Urine HCG, Qualitative Hcg negative (Negative) Test 07/05/16 05:15 White Blood Count 6.2x10^3/uL (4.0-11.0) Red Blood Count 4.73x10^6/uL (3.50-5.40) Hemoglobin 11.9g/dL (12.0-15.5) Hematocrit 37.0% (36.0-47.0) Mean Corpuscular Volume 78fL (79-100) Mean Corpuscular Hemoglobin 25pg (25-35) Mean Corpuscular Hemoglobin Concent 32g/dL (31-37) Red Cell Distribution Width 15.4% (11.5-14.5) Platelet Count 199x10^3/uL (140-400) Neutrophils (%) (Auto) 60% (31-73) Lymphocytes (%) (Auto) 29% (24-48) Monocytes (%) (Auto) 8% (0-9) Eosinophils (%) (Auto) 2% (0-3) Basophils (%) (Auto) 1% (0-3) Neutrophils # (Auto) 3.7x10^3uL (1.8-7.7) Lymphocytes # (Auto) 1.8x10^3/uL (1.0-4.8) Monocytes # (Auto) 0.5x10^3/uL (0.0-1.1) Eosinophils # (Auto) 0.1x10^3/uL (0.0-0.7) Basophils # (Auto) 0.1x10^3/uL (0.0-0.2) Sodium Level 143mmol/L (136-145) Potassium Level 3.4mmol/L (3.5-5.1) Chloride Level 108mmol/L (98-107) Carbon Dioxide Level 27mmol/L (21-32) Anion Gap 8 (6-14) Blood Urea Nitrogen 10mg/dL (7-20) Creatinine 0.7mg/dL (0.6-1.0) Estimated GFR (Cockcroft-Gault) 93.6 Glucose Level 98mg/dL (70-99) Calcium Level 8.2mg/dL (8.5-10.1) Triglycerides Level 92mg/dL (0-150) Cholesterol Level 171mg/dL (0-200) LDL Cholesterol, Calculated 98mg/dL (0-100) VLDL Cholesterol, Calculated 18mg/dL (0-40) HDL Cholesterol 55mg/dL (40-60) Cholesterol/HDL Ratio 3.1 Medications Current Medications Nicardipine HCl/ Sodium Chloride (Cardene/Iv Sodium Chloride 0.9% 250ml) 270 ml @ 0 mls/hr CONT PRN IV ELEVATED BP, SEE COMMENTS Last administered on 00:59; Start 07/04/16 at 12:15 Fentanyl Citrate 50 mcg 50 mcg PRN Q15MIN PRN IV PAIN GREATER THAN 3/10 Last administered on 07/04/16 17:57; Start 07/04/16 at 12:30; Stop 07/05/16 at 12:29 Sodium Chloride (Iv Sodium Chloride 0.9% 1000ml Bag) 1,000 ml @ 100 mls/hr Q10H IV Last administered on 07/04/16 12:34; Start 07/04/16 at 12:16; Stop at 22:15; Status DC Ondansetron HCl (Zofran) 4 mg 1X ONCE IV Last administered on 07/04/16 12:33; Start 07/04/16 at 12:30; Stop 07/04/16 at 12:31; Status DC Ondansetron HCl (Zofran) 4 mg PRN Q8HRS PRN IV NAUSEA/VOMITING; Start 07/04/16 at 13:45; Stop 07/04/16 at 16:28; Status DC Fentanyl Citrate 50 mcg 50 mcg PRN Q2HR PRN IV PAIN; Start 07/04/16 at 13:45; Stop 07/05/16 at 13:44 Sodium Chloride (Iv Sodium Chloride 0.9% 1000ml Bag) 1,000 ml @ 100 mls/hr Q10H IV Last administered on 07/04/16 22:42; Start 07/04/16 at 13:45; Stop 07/05 at 13:44 Acetaminophen (Tylenol) 650 mg PRN Q4HRS PRN PO FEVER; Start 07/04/16 at 13:45; Stop 07/04/16 at 14:38; Status DC Acetaminophen (Tylenol) 650 mg PRN Q6HRS PRN PO MILD PAIN / TEMP Last administered on 07/05/16 05:12; Start 07/04/16 at 14:30 Ondansetron HCl (Zofran) 4 mg PRN Q6HRS PRN IV NAUSEA/VOMITING; Start 07/04/16 at 14:30 Lisinopril (Prinivil) 40 mg DAILY PO ; Start 07/05/16 at 09:00; Stop 07/05/16 at 09:00; Status DC Amlodipine Besylate (Norvasc) 10 mg DAILY PO ; Start 07/05/16 at 09:00; Stop 02/11 at 09:00; Status DC Amlodipine Besylate (Norvasc) 10 mg DAILY PO Last administered on 07/04/16 19: 31; Start 07/04/16 at 15:00; Stop 07/05/16 at 08:25; Status DC Lisinopril (Prinivil) 40 mg DAILY PO Last administered on 07/05/16 08:46; Start 07/04/16 at 15:00 Pantoprazole Sodium (Protonix) 40 mg DAILYAC PO Last administered on 07/05/16 08:46; Start 07/05/16 at 07:30 Iohexol (Omnipaque 350 Mg/ml) 75 ml 1X ONCE IV Last administered on 07/04/16 17:03; Start 07/04/16 at 16:45; Stop 07/04/16 at 16:47; Status DC Info (Do NOT chart on this entry -- for MONITORING) 1 each PRN DAILY PRN MC SEE COMMENTS; Start 07/04/16 at 17:00; Stop 07/06/16 at 16:59 Potassium Chloride (Klor-Con) 40 meq 1X ONCE PO ; Start 07/05/16 at 09:00; Stop 07/05/16 at 09:01 Carvedilol (Coreg) 3.125 mg BIDWMEALS PO ; Start 07/05/16 at 09:00 Active Scripts Active Reported No Known Medications Prior To Admisstion (Info) Each 1 Each Vitals/I & O Vital Sign - Last 24 Hours 07/04/16 07/04/16 07/04/16 07/04/16 11:50 12:45 12:52 12:57 Temp 98.2 98.2 Pulse 79 81 82 84 Resp 20 18 23 20 B/P 281/154 206/125 221/121 210/111 Pulse Ox 99 96 96 96 O2 Delivery Room Air Room Air 07/04/16 07/04/16 07/04/16 07/04/16 13:02 13:07 13:12 13:34 Pulse 88 78 73 73 Resp 24 26 24 24 B/P 187/95 169/91 182/102 161/96 Pulse Ox 96 99 99 99 07/04/16 07/04/16 07/04/16 07/04/16 13:44 14:10 14:45 15:00 Temp 98.1 98.1 Pulse 82 81 88 88 Resp 24 20 16 16 B/P 175/89 169/88 178/84 161/84 Pulse Ox 97 97 97 97 O2 Delivery Room Air Room Air 3/907/04/16 07/04/16 07/04/16 15:15 15:30 16:00 16:00 Pulse 90 90 90 Resp 16 16 16 B/P 190/85 189/76 137/70 Pulse Ox 97 97 97 O2 Delivery Room Air Room Air Room Air Room Air 07/04/16 07/04/16 07/04/16 07/04/16 17:00 17:30 17:57 18:00 Pulse 92 96 96 Resp 16 16 18 16 B/P 153/72 148/71 151/63 Pulse Ox 97 97 97 O2 Delivery Room Air Room Air Nasal Cannula Room Air 07/04/16 07/04/16 07/04/16 07/04/16 18:27 19:00 19:31 20:00 Pulse 92 106 Resp 16 22 B/P 157/71 157/71 Pulse Ox 96 O2 Delivery Room Air Room Air Room Air 07/04/16 07/04/16 07/04/16 07/04/16 20:00 20:30 20:55 21:00 Temp 98.8 98.8 Pulse 84 85 88 Resp 18 23 B/P 132/63 158/64 158/64 142/69 Pulse Ox 96 96 O2 Delivery Room Air Room Air 07/04/16 07/04/16 07/05/16 07/05/16 22:00 23:00 00:00 00:39 Temp 97.7 97.7 Pulse 76 75 76 Resp 18 22 16 B/P 142/67 129/56 137/69 Pulse Ox 94 96 94 O2 Delivery Room Air Room Air Room Air Room Air 07/05/16 07/05/16 07/05/16 07/05/16 01:00 02:00 03:00 04:00 Temp 98.1 98.1 Pulse 74 72 68 68 Resp 14 16 17 14 B/P 130/62 114/70 133/65 131/64 Pulse Ox 96 96 93 94 O2 Delivery Room Air Room Air Room Air Room Air 07/05/16 07/05/16 07/05/16 07/05/16 04:00 05:00 06:00 07:00 Temp 98.7 98.7 Pulse 70 65 68 Resp 25 23 18 B/P 148/74 148/73 147/74 Pulse Ox 97 96 98 O2 Delivery Room Air Room Air Room Air Room Air 07/05/16 07/05/16 07:42 08:46 Pulse 68 B/P 147/74 O2 Delivery Room Air Intake and Output 07/04/16 07/04/16 07/05/16 15:00 23:00 07:00 Intake Total 838 ml 1380 ml Output Total 600 ml 1350 ml 1000 ml Balance -600 ml -512 ml 380 ml CORNELL PASCUAL MD Jul 05, 2016 08:48
[2016-07-05] MEDS: IV NORMAL SALINE 1000ML BAG 1,000 ML IV SCH (08:50)
[2016-07-05] MEDS ORDERED: AMLODIPINE BESYLATE 10 MG TABLET PO SCH (09:00)
[2016-07-05] MEDS ORDERED: POTASSIUM CHLORIDE 20 MEQ TABLET.ER. PO ONE (09:00)
[2016-07-05] MEDS ORDERED: CARVEDILOL 3.125 MG TABLET PO SCH (09:00)
[2016-07-05] MEDS ORDERED: LISINOPRIL 40 MG TABLET. PO SCH (09:00)
--- NOTE | 2016-07-05 09:58 | PDOC ---
RIC WILKERSON [employer]IL[employer] SWITCHMAN 07/05/16 0958: CARDIO Progress Notes Date and Time Date of Service 07/05/2016 Time of Evaluation 0910 Subjective Subjective: No Chest Pain, No shortness of breath, No Palpitations, No Dizziness, Other (denies any further PERERA or facial numbness) Vitals Vitals Vital Signs Date Time Temp Pulse Resp B/P Pulse Ox O2 Delivery O2 Flow Rate FiO2 07/05/16 09:00 88 18 160/86 98 Room Air 07/05/16 07:00 98.7 98.7 Weight Weight [ ] Input and Output Intake and Output Intake and Output 07/05/16 07:00 Intake Total 2218 ml Output Total 2950 ml Balance -732 ml IV Total 2218 ml Output Urine Total 2950 ml Laboratory Labs Laboratory Tests Test 07/04/16 12:04 07/04/16 12:13 07/04/16 13:20 07/04/16 13:25 White Blood Count 6.2x10^3/uL (4.0-11.0) Red Blood Count 4.96x10^6/uL (3.50-5.40) Hemoglobin 12.4g/dL (12.0-15.5) Hematocrit 37.9% (36.0-47.0) Mean Corpuscular Volume 77fL (79-100) Mean Corpuscular Hemoglobin 25pg (25-35) Mean Corpuscular Hemoglobin Concent 33g/dL (31-37) Red Cell Distribution Width 15.0% (11.5-14.5) Platelet Count 205x10^3/uL (140-400) Neutrophils (%) (Auto) 65% (31-73) Lymphocytes (%) (Auto) 23% (24-48) Monocytes (%) (Auto) 9% (0-9) Eosinophils (%) (Auto) 2% (0-3) Basophils (%) (Auto) 1% (0-3) Neutrophils # (Auto) 4.0x10^3uL (1.8-7.7) Lymphocytes # (Auto) 1.4x10^3/uL (1.0-4.8) Monocytes # (Auto) 0.6x10^3/uL (0.0-1.1) Eosinophils # (Auto) 0.1x10^3/uL (0.0-0.7) Basophils # (Auto) 0.0x10^3/uL (0.0-0.2) Prothrombin Time 12.6SEC (11.7-14.0) Prothromb Time International Ratio 1.0 (0.8-1.1) Sodium Level 143mmol/L (136-145) Potassium Level 3.6mmol/L (3.5-5.1) Chloride Level 106mmol/L (98-107) Carbon Dioxide Level 30mmol/L (21-32) Anion Gap 7 (6-14) Blood Urea Nitrogen 13mg/dL (7-20) Creatinine 0.8mg/dL (0.6-1.0) Estimated GFR (Cockcroft-Gault) 80.3 Glucose Level 93mg/dL (70-99) Calcium Level 8.9mg/dL (8.5-10.1) Magnesium Level 1.9mg/dL (1.8-2.4) Total Bilirubin 0.4mg/dL (0.2-1.0) Direct Bilirubin 0.1mg/dL (0.0-0.2) Aspartate Amino Transf (AST/SGOT) 14U/L (15-37) Alanine Aminotransferase (ALT/SGPT) 14U/L (14-59) Alkaline Phosphatase 77U/L (46-116) Creatine Kinase 111U/L (26-192) Creatine Kinase MB (Mass) 0.8ng/mL (0.0-3.6) Creatine Kinase MB Relative Index 0.7% (0-4) Troponin I Quantitative 0.018ng/mL (0.000-0.055) QT-Mti-W-Type Natriuretic Peptide 2308pg/mL (0-124) Total Protein 7.3g/dL (6.4-8.2) Albumin 3.5g/dL (3.4-5.0) Thyroid Stimulating Hormone (TSH) 1.561uIU/mL (0.358-3.74) Bedside Troponin I 0.00ng/ml (<0.08) Urine Color Yellow Urine Clarity Clear Urine pH 7.5 Urine Specific [place] 1.010 Urine Protein Negativemg/dL (NEG-TRACE) Urine Glucose (UA) Negativemg/dL (NEG) Urine Ketones (Stick) Negativemg/dL (NEG) Urine Blood Trace (NEG) Urine Nitrite Negative (NEG) Urine Bilirubin Negative (NEG) Urine Urobilinogen Dipstick 0.2mg/dL (0.2 mg/dL) Urine Leukocyte Esterase Negative (NEG) Urine RBC 1-2/HPF (0-2) Urine WBC Occ/HPF (0-4) Urine Squamous Epithelial Cells Occ/LPF Urine Amorphous Sediment Present/HPF Urine Bacteria 0/HPF (0-FEW) Urine Mucus Mod/LPF Urine Opiates Screen Neg (NEG) Urine Methadone Screen Neg (NEG) Urine Barbiturates Neg (NEG) Urine Phencyclidine Screen Neg (NEG) Urine Amphetamine/Methamphetamine Neg (NEG) Urine Benzodiazepines Screen Neg (NEG) Urine Cocaine Screen Neg (NEG) Urine Cannabinoids Screen Neg (NEG) Urine Ethyl Alcohol Neg (NEG) Bedside Urine HCG, Qualitative Hcg negative (Negative) Test 07/05/16 05:15 White Blood Count 6.2x10^3/uL (4.0-11.0) Red Blood Count 4.73x10^6/uL (3.50-5.40) Hemoglobin 11.9g/dL (12.0-15.5) Hematocrit 37.0% (36.0-47.0) Mean Corpuscular Volume 78fL (79-100) Mean Corpuscular Hemoglobin 25pg (25-35) Mean Corpuscular Hemoglobin Concent 32g/dL (31-37) Red Cell Distribution Width 15.4% (11.5-14.5) Platelet Count 199x10^3/uL (140-400) Neutrophils (%) (Auto) 60% (31-73) Lymphocytes (%) (Auto) 29% (24-48) Monocytes (%) (Auto) 8% (0-9) Eosinophils (%) (Auto) 2% (0-3) Basophils (%) (Auto) 1% (0-3) Neutrophils # (Auto) 3.7x10^3uL (1.8-7.7) Lymphocytes # (Auto) 1.8x10^3/uL (1.0-4.8) Monocytes # (Auto) 0.5x10^3/uL (0.0-1.1) Eosinophils # (Auto) 0.1x10^3/uL (0.0-0.7) Basophils # (Auto) 0.1x10^3/uL (0.0-0.2) Sodium Level 143mmol/L (136-145) Potassium Level 3.4mmol/L (3.5-5.1) Chloride Level 108mmol/L (98-107) Carbon Dioxide Level 27mmol/L (21-32) Anion Gap 8 (6-14) Blood Urea Nitrogen 10mg/dL (7-20) Creatinine 0.7mg/dL (0.6-1.0) Estimated GFR (Cockcroft-Gault) 93.6 Glucose Level 98mg/dL (70-99) Calcium Level 8.2mg/dL (8.5-10.1) Triglycerides Level 92mg/dL (0-150) Cholesterol Level 171mg/dL (0-200) LDL Cholesterol, Calculated 98mg/dL (0-100) VLDL Cholesterol, Calculated 18mg/dL (0-40) HDL Cholesterol 55mg/dL (40-60) Cholesterol/HDL Ratio 3.1 Physical Exam HEENT: Neck Supple W Full Motion Chest: Symmetric Heart: S1S2, RRR (SR) Abdomen: Soft N/T Extremities: No Calf Tenderness Neurology: alert, oriented, follow commands Assessment Assessment 1. Malignant HTN: HTN is essential/chronic with hypertensive heart disease. Improved. 2. Hemorrhagic CVA: 6 x 5 mm hemorrhage within the left thalamus with mild surrounding vasogenic edema per CT. Related to #1 3. Right unilateral PERERA with facial paresthesia/visual floaters: Now absent Recommendations 1. Cardene off. Responded well with lisinopril and amlodipine 2. TTE noted with moderate to moderate severe concentric left ventricular hypertrophy. Will stop amlodipine and will start on coreg. 3. Will consider HCTZ and will uptitrate coreg per BP trend, Tailor-made regimen with 4$ [facility] Rx list. 4. Neurosurgery consult pending 5. Replace K 6. Social service/briefcase sewer to her with [facility] 7. Encouraged home BP monitoring 8. May transfer to [facility] when cleared by neurosurgery. 9. Dietitician to see for diet modification. ZOILA COON MD 07/05/16 9410: CARDIO Progress Notes Assessment Assessment Patient seen and examined. Agree with NURSE EDUCATOR's assessment and plan. Blood pressure much better controlled. Patient is presently off Cardene drip. 2-D echo showed normal systolic function. Continue current medical regimen. RIC WILKERSON APRN Jul 05, 2016 09:58 ZOILA COON MD Jul 05, 2016 16:08
[2016-07-05] MEDS: HYDROCHLOROTHIAZIDE 12.5 MG CAPSULE. PO SCH (10:17)
[2016-07-05] MEDS ORDERED: CARVEDILOL 3.125 MG TABLET PO ONE (10:30)
--- NOTE | 2016-07-05 14:44 | PDOC ---
PROGRESS NOTES Assessment Assessment Acute small left thalamus 6 mm x 5 mm hemorrhage with surrounding vasogenic edema. Hypertensive encephalopathy. Hypertensive emergency, BP 281/154 mmHg. Malignant HTN, not treated. Right side numbness, tingling, cramping and weakness. Cardiomegaly. RECOMMENDATIONS/PLAN: BP control, no high than 150-160/90 mmHg. Treat medical diseases. OT/OT. CTA: negative. Carotid A US + Doppler: No high grade stenosis. Echo: Unremarkable. HISTORY OF THE PRESENT ILLNESS: 40-y-old female patient with Hx of HTN during about 7 years ago. She has not search medical attention nor treated for her HTN. She developed symptoms of right side face and extremities numbness, tingling and weakness, but mainly described as cramping in right UE and LE. She came to ER of [facility] and her BP was 281/[address] revealed ICH. She stated she is doing much better on 07/05. Her symptoms nearly resolved except numbness in her right side corner of mouth. PAST MEDICAL HISTORY: Please see above. PAST SURGERY HISTORY: . ALLERGY: Unknown MEDICATIONS: Refer to [facility] FAMILY HISTORY: Heart disease. SOCIAL HISTORY: Lives at home. Denies smoking, drinking, and illicit drug use. H REVIEW OF SYSTEMS: Constitutional: No malnutrition, weight loss, cachexia. Head: No traumatic brain or head injury. Skin: No edema, or rash. Ear: No infection, tinnitus. Eyes: No vision loss or color blindness. Nose: No bleeding or purulent discharges. Hearing: No hearing decrease. Neck: No injury. Breast: No history of cancer, masses,or discharges. Cardiac: HTN. Pulmonary: No COPD. GI: No GI ulcer, GI bleeding. Urinary/genital: No dysuria, hematuria, incontinence, urinary retention. Endocrinologic: No cousin face, craniofacial dysmorphism, polydactyly. Skeletomuscular: No muscular atrophy, deformity. Neurological: see HP. Psychiatric: Denies drug use/abuse. Otherwise, not [id number] review of systems. PHYSICAL EXAMINATION: General appearance is in subacute distress. HEENT: Normocephalic and nontraumatic. Eyes, nose, ears, and throat are unremarkable. Neck is supple. No lymphadenopathy. No crepitus. Cardiovascular: S1, S2, regular rate and rhythm. Pulmonary: Clear to auscultation bilaterally. Abdomen: Bowel sounds are positive. Abdomen is soft, nontender, and nondistended. Extremities: No rash, lesions, or edema. No restriction of range of motion NEUROLOGICAL EXAMINATION: Awake. Oriented to time, place and person. PERRL. EOMI. CN: no obvious focal findings. Muscle tone: within normal. Muscle strength: 5 DTR: 2 Plantar reflex: Flexor response bilaterally Gait: able to walk. Sensory exam: no abnormal findings. No cerebellar signs elicited, but horizontal nystagmus noted. F-T-N test fine. Objective Objective Vital Signs Date Time Temp Pulse Resp B/P Pulse Ox O2 Delivery O2 Flow Rate FiO2 07/05/16 13:00 73 17 164/92 97 Room Air 07/05/16 11:05 98.5 98.5 Intake and Output 07/05/16 07:00 Intake Total 2218 ml Output Total 2950 ml Balance -732 ml IV Total 2218 ml Output Urine Total 2950 ml Vitals Signs Vitals VS - Last 72 Hours, by Label Date Time Temp Pulse Resp B/P Pulse Ox O2 Delivery O2 Flow Rate FiO2 07/05/16 13:00 73 17 164/92 97 Room Air 07/05/16 12:00 75 17 160/89 98 Room Air 07/05/16 12:00 Room Air 07/05/16 11:05 98.5 73 17 151/81 98 Room Air 98.5 07/05/16 10:18 80 141/76 07/05/16 10:00 80 17 141/76 98 Room Air 07/05/16 09:00 88 18 160/86 98 Room Air 07/05/16 08:51 68 147/74 07/05/16 08:46 68 147/74 07/05/16 08:00 72 18 156/78 97 Room Air 07/05/16 07:42 Room Air 07/05/16 07:00 98.7 68 18 147/74 98 Room Air 98.7 07/05/16 06:00 65 23 148/73 96 Room Air 07/05/16 05:00 70 25 148/74 97 Room Air 07/05/16 04:00 Room Air 07/05/16 04:00 98.1 68 14 131/64 94 Room Air 98.1 07/05/16 03:00 68 17 133/65 93 Room Air 07/05/16 02:00 72 16 114/70 96 Room Air 07/05/16 01:00 74 14 130/62 96 Room Air 07/05/16 00:39 Room Air 07/05/16 00:00 97.7 76 16 137/69 94 Room Air 97.7 07/04/16 23:00 75 22 129/56 96 Room Air 07/04/16 22:00 76 18 142/67 94 Room Air 07/04/16 21:00 88 23 142/69 96 Room Air 07/04/16 20:55 85 158/64 07/04/16 20:30 158/64 07/04/16 20:00 98.8 84 18 132/63 96 Room Air 98.8 07/04/16 20:00 Room Air 07/04/16 19:31 106 157/71 07/04/16 19:00 92 22 157/71 96 Room Air 07/04/16 18:27 16 Room Air 07/04/16 18:00 96 16 151/63 97 Room Air 07/04/16 17:57 18 Nasal Cannula 07/04/16 17:30 96 16 148/71 97 Room Air 07/04/16 17:00 92 16 153/72 97 Room Air 07/04/16 16:00 Room Air 07/04/16 16:00 90 16 137/70 97 Room Air 07/04/16 15:30 90 16 189/76 97 Room Air 07/04/16 15:15 90 16 190/85 97 Room Air 07/04/16 15:00 88 16 161/84 97 Room Air 07/04/16 14:45 98.1 88 16 178/84 97 Room Air 98.1 07/04/16 14:10 81 20 169/88 97 07/04/16 13:44 82 24 175/89 97 07/04/16 13:34 73 24 161/96 99 07/04/16 13:12 73 24 182/102 99 07/04/16 13:07 78 26 169/91 99 07/04/16 13:02 88 24 187/95 96 07/04/16 12:57 84 20 210/111 96 07/04/16 12:52 82 23 221/121 96 07/04/16 12:45 81 18 206/125 96 Room Air 07/04/16 11:50 98.2 79 20 281/154 99 Room Air 98.2 Laboratory Laboratory Laboratory Tests Test 3/10/17 05:15 White Blood Count 6.2x10^3/uL (4.0-11.0) Red Blood Count 4.73x10^6/uL (3.50-5.40) Hemoglobin 11.9g/dL (12.0-15.5) Hematocrit 37.0% (36.0-47.0) Mean Corpuscular Volume 78fL (79-100) Mean Corpuscular Hemoglobin 25pg (25-35) Mean Corpuscular Hemoglobin Concent 32g/dL (31-37) Red Cell Distribution Width 15.4% (11.5-14.5) Platelet Count 199x10^3/uL (140-400) Neutrophils (%) (Auto) 60% (31-73) Lymphocytes (%) (Auto) 29% (24-48) Monocytes (%) (Auto) 8% (0-9) Eosinophils (%) (Auto) 2% (0-3) Basophils (%) (Auto) 1% (0-3) Neutrophils # (Auto) 3.7x10^3uL (1.8-7.7) Lymphocytes # (Auto) 1.8x10^3/uL (1.0-4.8) Monocytes # (Auto) 0.5x10^3/uL (0.0-1.1) Eosinophils # (Auto) 0.1x10^3/uL (0.0-0.7) Basophils # (Auto) 0.1x10^3/uL (0.0-0.2) Sodium Level 143mmol/L (136-145) Potassium Level 3.4mmol/L (3.5-5.1) Chloride Level 108mmol/L (98-107) Carbon Dioxide Level 27mmol/L (21-32) Anion Gap 8 (6-14) Blood Urea Nitrogen 10mg/dL (7-20) Creatinine 0.7mg/dL (0.6-1.0) Estimated GFR (Cockcroft-Gault) 93.6 Glucose Level 98mg/dL (70-99) Calcium Level 8.2mg/dL (8.5-10.1) Triglycerides Level 92mg/dL (0-150) Cholesterol Level 171mg/dL (0-200) LDL Cholesterol, Calculated 98mg/dL (0-100) VLDL Cholesterol, Calculated 18mg/dL (0-40) HDL Cholesterol 55mg/dL (40-60) Cholesterol/HDL Ratio 3.1 Medication Medications Current Medications Amlodipine Besylate (Norvasc) 10 mg DAILY PO ; Start 07/05/16 at 09:00; Stop 02/11 at 09:00; Status DC Amlodipine Besylate (Norvasc) 10 mg DAILY PO Last administered on 07/04/16 19: 31; Start 07/04/16 at 15:00; Stop 07/05/16 at 08:25; Status DC Carvedilol (Coreg) 3.125 mg 1X ONCE PO Last administered on 07/05/16 10:18; Start 07/05/16 at 10:30; Stop 07/05/16 at 10:31; Status DC Carvedilol (Coreg) 3.125 mg BIDWMEALS PO Last administered on 07/05/16 08:51; Start 07/05/16 at 09:00; Stop 07/05/16 at 09:58; Status DC Carvedilol (Coreg) 6.25 mg BIDWMEALS PO ; Start 07/05/16 at 17:00 Hydrochlorothiazide (Microzide) 12.5 mg DAILY PO Last administered on 10:17; Start 07/05/16 at 10:30 Info (Do NOT chart on this entry -- for MONITORING) 1 each PRN DAILY PRN MC SEE COMMENTS; Start 07/04/16 at 17:00; Stop 07/06/16 at 16:59 Iohexol (Omnipaque 350 Mg/ml) 75 ml 1X ONCE IV Last administered on 07/04/16 17:03; Start 07/04/16 at 16:45; Stop 07/04/16 at 16:47; Status DC Lisinopril (Prinivil) 40 mg DAILY PO ; Start 07/05/16 at 09:00; Stop 07/05/16 at 09:00; Status DC Lisinopril (Prinivil) 40 mg DAILY PO Last administered on 07/05/16 08:46; Start 07/04/16 at 15:00 Pantoprazole Sodium (Protonix) 40 mg DAILYAC PO Last administered on 07/05/16 08:46; Start 07/05/16 at 07:30 Potassium Chloride (Klor-Con) 40 meq 1X ONCE PO Last administered on t 08:51; Start 07/05/16 at 09:00; Stop 07/05/16 at 09:01; Status DC Comment Review of Relevant I have reviewed the following items luz maria (where applicable) has been applied. MARIN GONZALEZ MD Jul 05, 2016 14:44
--- NOTE | 2016-07-05 16:43 | PDOC ---
Provider Note Provider Note Patient seen and examined. Left thalamic focal hemorrhage. BP control. May transfer to floor per NS standpoint. Full consult to follow. NEENA JANE MD Jul 05, 2016 16:43
[2016-07-05] MEDS: CARVEDILOL 6.25 MG TABLET PO SCH (16:58)
[2016-07-05] MEDS: hydrALAZINE 20 MG/ML VIAL. IVP PRN ×2 (16:58→22:19)
[2016-07-06] VITALS (7 sets, daily range): BP systolic 117–164; BP diastolic 72–114
[2016-07-06] MEDS: ACETAMINOPHEN 325 MG TABLET. PO PRN ×2 (04:45→14:31)
[2016-07-06] MEDS: hydrALAZINE 20 MG/ML VIAL. IVP PRN ×3 (04:50→15:38)
[2016-07-06] MEDS: PANTOPRAZOLE 40 MG TABLET. PO SCH (08:03)
[2016-07-06] MEDS: HYDROCHLOROTHIAZIDE 12.5 MG CAPSULE. PO SCH (08:03)
[2016-07-06] MEDS: CARVEDILOL 6.25 MG TABLET PO SCH ×2 (08:03→16:55)
[2016-07-06] MEDS: LISINOPRIL 40 MG TABLET. PO SCH (08:04)
[2016-07-06] MEDS: TRAMADOL 50 MG TABLET. PO PRN ×2 (12:19→20:03)
--- NOTE | 2016-07-06 13:33 | PDOC ---
PROGRESS NOTES Assessment Problems Medical Problems: (1) Hemorrhagic cerebrovascular accident (CVA) Status: Acute (2) Malignant hypertension Status: Acute Acute small left thalamus 6 mm x 5 mm hemorrhage with surrounding vasogenic edema, making excellent recovery. Hypertensive encephalopathy. Note normal lipids, does not need statin Plan BP control, no higher than 150-160/90 mmHg. Treat medical diseases. OT/OT. Home when blood pressure stable Subjective No complaints Objective Vital Signs Date Time Temp Pulse Resp B/P Pulse Ox O2 Delivery O2 Flow Rate FiO2 07/06/16 12:19 18 97 Room Air 07/06/16 11:33 78 154/103 07/06/16 07:00 98.0 98.0 Intake and Output 07/06/16 07:00 Intake Total 1945 ml Output Total 1000 ml Balance 945 ml Intake Oral 1120 ml IV Total 825 ml Output Urine Total 1000 ml # Voids 6 PHYSICAL EXAM Alert. Oriented to time, place and person. PERRL. EOMI. CN: no focal findings. Muscle tone: normal. Muscle strength: 5/5 DTR: 2+ Plantar reflex: flexor Gait: normal. Sensory exam: no abnormal findings. No cerebellar signs elicited. Review of Relevant I have reviewed the following items luz maria (where applicable) has been applied. Labs Laboratory Tests Test 07/04/16 19:15 07/05/16 05:15 Nasal Screen MRSA (PCR) Negative (Negative) White Blood Count 6.2x10^3/uL (4.0-11.0) Red Blood Count 4.73x10^6/uL (3.50-5.40) Hemoglobin 11.9g/dL (12.0-15.5) Hematocrit 37.0% (36.0-47.0) Mean Corpuscular Volume 78fL (79-100) Mean Corpuscular Hemoglobin 25pg (25-35) Mean Corpuscular Hemoglobin Concent 32g/dL (31-37) Red Cell Distribution Width 15.4% (11.5-14.5) Platelet Count 199x10^3/uL (140-400) Neutrophils (%) (Auto) 60% (31-73) Lymphocytes (%) (Auto) 29% (24-48) Monocytes (%) (Auto) 8% (0-9) Eosinophils (%) (Auto) 2% (0-3) Basophils (%) (Auto) 1% (0-3) Neutrophils # (Auto) 3.7x10^3uL (1.8-7.7) Lymphocytes # (Auto) 1.8x10^3/uL (1.0-4.8) Monocytes # (Auto) 0.5x10^3/uL (0.0-1.1) Eosinophils # (Auto) 0.1x10^3/uL (0.0-0.7) Basophils # (Auto) 0.1x10^3/uL (0.0-0.2) Sodium Level 143mmol/L (136-145) Potassium Level 3.4mmol/L (3.5-5.1) Chloride Level 108mmol/L (98-107) Carbon Dioxide Level 27mmol/L (21-32) Anion Gap 8 (6-14) Blood Urea Nitrogen 10mg/dL (7-20) Creatinine 0.7mg/dL (0.6-1.0) Estimated GFR (Cockcroft-Gault) 93.6 Glucose Level 98mg/dL (70-99) Calcium Level 8.2mg/dL (8.5-10.1) Triglycerides Level 92mg/dL (0-150) Cholesterol Level 171mg/dL (0-200) LDL Cholesterol, Calculated 98mg/dL (0-100) VLDL Cholesterol, Calculated 18mg/dL (0-40) HDL Cholesterol 55mg/dL (40-60) Cholesterol/HDL Ratio 3.1 Medications Current Medications Nicardipine HCl/ Sodium Chloride (Cardene/Iv Sodium Chloride 0.9% 250ml) 270 ml @ 0 mls/hr CONT PRN IV ELEVATED BP, SEE COMMENTS Last administered on 00:59; Start 07/04/16 at 12:15 Fentanyl Citrate 50 mcg 50 mcg PRN Q15MIN PRN IV PAIN GREATER THAN 3/10 Last administered on 07/04/16 17:57; Start 07/04/16 at 12:30; Stop 07/05/16 at 12:29; Status DC Sodium Chloride (Iv Sodium Chloride 0.9% 1000ml Bag) 1,000 ml @ 100 mls/hr Q10H IV Last administered on 07/04/16 12:34; Start 07/04/16 at 12:16; Stop at 22:15; Status DC Ondansetron HCl (Zofran) 4 mg 1X ONCE IV Last administered on 07/04/16 12:33; Start 07/04/16 at 12:30; Stop 07/04/16 at 12:31; Status DC Ondansetron HCl (Zofran) 4 mg PRN Q8HRS PRN IV NAUSEA/VOMITING; Start 07/04/16 at 13:45; Stop 07/04/16 at 16:28; Status DC Fentanyl Citrate 50 mcg 50 mcg PRN Q2HR PRN IV PAIN; Start 07/04/16 at 13:45; Stop 07/05/16 at 13:44; Status DC Sodium Chloride (Iv Sodium Chloride 0.9% 1000ml Bag) 1,000 ml @ 100 mls/hr Q10H IV Last administered on 07/05/16 08:50; Start 07/04/16 at 13:45; Stop 02/11 at 13:44; Status DC Acetaminophen (Tylenol) 650 mg PRN Q4HRS PRN PO FEVER; Start 07/04/16 at 13:45; Stop 07/04/16 at 14:38; Status DC Acetaminophen (Tylenol) 650 mg PRN Q6HRS PRN PO MILD PAIN / TEMP Last administered on 07/06/16 04:45; Start 07/04/16 at 14:30 Ondansetron HCl (Zofran) 4 mg PRN Q6HRS PRN IV NAUSEA/VOMITING Last administered on 07/06/16 08:03; Start 07/04/16 at 14:30 Lisinopril (Prinivil) 40 mg DAILY PO ; Start 07/05/16 at 09:00; Stop 07/05/16 at 09:00; Status DC Amlodipine Besylate (Norvasc) 10 mg DAILY PO ; Start 07/05/16 at 09:00; Stop 02/11 at 09:00; Status DC Amlodipine Besylate (Norvasc) 10 mg DAILY PO Last administered on 07/04/16 19: 31; Start 07/04/16 at 15:00; Stop 07/05/16 at 08:25; Status DC Lisinopril (Prinivil) 40 mg DAILY PO Last administered on 07/06/16 08:04; Start 07/04/16 at 15:00 Pantoprazole Sodium (Protonix) 40 mg DAILYAC PO Last administered on 07/06/16 08:03; Start 07/05/16 at 07:30 Iohexol (Omnipaque 350 Mg/ml) 75 ml 1X ONCE IV Last administered on 07/04/16 17:03; Start 07/04/16 at 16:45; Stop 07/04/16 at 16:47; Status DC Info (Do NOT chart on this entry -- for MONITORING) 1 each PRN DAILY PRN MC SEE COMMENTS; Start 07/04/16 at 17:00; Stop 07/06/16 at 16:59 Potassium Chloride (Klor-Con) 40 meq 1X ONCE PO Last administered on 08:51; Start 07/05/16 at 09:00; Stop 07/05/16 at 09:01; Status DC Carvedilol (Coreg) 3.125 mg BIDWMEALS PO Last administered on 07/05/16 08:51; Start 07/05/16 at 09:00; Stop 07/05/16 at 09:58; Status DC Carvedilol (Coreg) 3.125 mg 1X ONCE PO Last administered on 07/05/16 10:18; Start 07/05/16 at 10:30; Stop 07/05/16 at 10:31; Status DC Carvedilol (Coreg) 6.25 mg BIDWMEALS PO Last administered on 07/06/16 08:03; Start 07/05/16 at 17:00; Stop 07/06/16 at 11:42; Status DC Hydrochlorothiazide (Microzide) 12.5 mg DAILY PO Last administered on 08:03; Start 07/05/16 at 10:30; Stop 07/06/16 at 11:42; Status DC Hydralazine HCl (Apresoline) 10 mg PRN Q4HRS PRN IVP ELEVATED BP, SEE COMMENTS Last administered on 07/06/16 11:33; Start 07/05/16 at 15:00 Carvedilol (Coreg) 12.5 mg BIDWMEALS PO ; Start 07/06/16 at 17:00 Hydrochlorothiazide (Hydrodiuril) 25 mg DAILY PO ; Start 07/07/16 at 09:00 Tramadol HCl (Ultram) 25 mg PRN Q6HRS PRN PO PAIN Last administered on t 12:19; Start 07/06/16 at 11:45 Active Scripts Active Reported No Known Medications Prior To Admisstion (Info) Each 1 Each Vitals/I & O Vital Sign - Last 24 Hours 07/05/16 07/05/16 07/05/16 07/05/16 15:00 15:01 16:00 16:58 Temp 99.0 98.1 99.0 98.1 Pulse 63 73 73 Resp 17 18 B/P 154/82 180/107 180/107 Pulse Ox 97 96 O2 Delivery Room Air Room Air 07/05/16 07/05/16 07/05/16 07/05/16 16:58 17:59 19:00 20:00 Temp 97.8 97.8 Pulse 73 84 87 Resp 18 B/P 180/107 167/109 172/108 Pulse Ox 99 98 O2 Delivery Room Air Room Air 07/05/16 07/05/16 07/06/16 07/06/16 22:19 23:00 03:00 04:50 Temp 98.3 98.3 98.3 98.3 Pulse 73 80 75 77 Resp 20 18 B/P 171/114 133/76 139/88 173/128 Pulse Ox 97 95 07/06/16 07/06/16 07/06/16 07/06/16 07:00 07:55 08:03 08:04 Temp 98.0 98.0 Pulse 76 77 77 Resp 20 B/P 149/95 173/128 173/128 Pulse Ox 97 O2 Delivery Room Air Room Air 07/06/16 07/06/16 11:33 12:19 Pulse 78 Resp 18 B/P 154/103 Pulse Ox 97 O2 Delivery Room Air Intake and Output 07/05/16 07/05/16 07/06/16 15:00 23:00 07:00 Intake Total 1245 ml 0 ml 700 ml Output Total 1000 ml Balance 245 ml 0 ml 700 ml Images CTA: negative. Carotid A US + Doppler: No high grade stenosis. Echo: Unremarkable. Head CT: 6 x 5 mm hemorrhage within the left thalamus with mild surrounding vasogenic edema. ROBERT KAUFMAN MD Jul 06, 2016 13:33
--- NOTE | 2016-07-06 14:29 | PDOC ---
PROGRESS NOTES Chief Complaint Chief Complaint left thalamus hemorrhage Accelerated HTN, malignant right side weakness, and numbness HTN emergency plan; 1. fu with card, neuro, neurosx 2. increase coreg, hctz ,on lisinopril 3. hydralazine prn, goal bp 160/90 pain control hope dc tmr History of Present Illness History of Present Illness NS following, feeling better, BP still high, + headache change to PO meds gi ppx Vitals Vitals Vital Signs Date Time Temp Pulse Resp B/P Pulse Ox O2 Delivery O2 Flow Rate FiO2 07/06/16 12:19 18 97 Room Air 07/06/16 11:33 78 154/103 07/06/16 11:00 98.0 98.0 Physical Exam General: Alert, Oriented X3, Cooperative, No acute distress Heart: Regular rate, Normal S1, Normal S2, Other (4/6 sytolic murmur to LLS and [place] border; bounding peripheral pulses) Abdomen: Soft, No tenderness Extremities: No cyanosis, No edema Skin: No breakdown, No significant lesion Review of Systems Review of Systems no fever, chills, sob or chest pain Assessment and Plan Assessmemt and Plan Problems Medical Problems: (1) Hemorrhagic cerebrovascular accident (CVA) Status: Acute (2) Malignant hypertension Status: Acute Problems: Comment Review of Relevant I have reviewed the following items luz maria (where applicable) has been applied. Labs Laboratory Tests Test 07/04/16 19:15 07/05/16 05:15 Nasal Screen MRSA (PCR) Negative (Negative) White Blood Count 6.2x10^3/uL (4.0-11.0) Red Blood Count 4.73x10^6/uL (3.50-5.40) Hemoglobin 11.9g/dL (12.0-15.5) Hematocrit 37.0% (36.0-47.0) Mean Corpuscular Volume 78fL (79-100) Mean Corpuscular Hemoglobin 25pg (25-35) Mean Corpuscular Hemoglobin Concent 32g/dL (31-37) Red Cell Distribution Width 15.4% (11.5-14.5) Platelet Count 199x10^3/uL (140-400) Neutrophils (%) (Auto) 60% (31-73) Lymphocytes (%) (Auto) 29% (24-48) Monocytes (%) (Auto) 8% (0-9) Eosinophils (%) (Auto) 2% (0-3) Basophils (%) (Auto) 1% (0-3) Neutrophils # (Auto) 3.7x10^3uL (1.8-7.7) Lymphocytes # (Auto) 1.8x10^3/uL (1.0-4.8) Monocytes # (Auto) 0.5x10^3/uL (0.0-1.1) Eosinophils # (Auto) 0.1x10^3/uL (0.0-0.7) Basophils # (Auto) 0.1x10^3/uL (0.0-0.2) Sodium Level 143mmol/L (136-145) Potassium Level 3.4mmol/L (3.5-5.1) Chloride Level 108mmol/L (98-107) Carbon Dioxide Level 27mmol/L (21-32) Anion Gap 8 (6-14) Blood Urea Nitrogen 10mg/dL (7-20) Creatinine 0.7mg/dL (0.6-1.0) Estimated GFR (Cockcroft-Gault) 93.6 Glucose Level 98mg/dL (70-99) Calcium Level 8.2mg/dL (8.5-10.1) Triglycerides Level 92mg/dL (0-150) Cholesterol Level 171mg/dL (0-200) LDL Cholesterol, Calculated 98mg/dL (0-100) VLDL Cholesterol, Calculated 18mg/dL (0-40) HDL Cholesterol 55mg/dL (40-60) Cholesterol/HDL Ratio 3.1 Medications Current Medications Nicardipine HCl/ Sodium Chloride (Cardene/Iv Sodium Chloride 0.9% 250ml) 270 ml @ 0 mls/hr CONT PRN IV ELEVATED BP, SEE COMMENTS Last administered on 00:59; Start 07/04/16 at 12:15 Fentanyl Citrate 50 mcg 50 mcg PRN Q15MIN PRN IV PAIN GREATER THAN 3/10 Last administered on 07/04/16 17:57; Start 07/04/16 at 12:30; Stop 07/05/16 at 12:29; Status DC Sodium Chloride (Iv Sodium Chloride 0.9% 1000ml Bag) 1,000 ml @ 100 mls/hr Q10H IV Last administered on 07/04/16 12:34; Start 07/04/16 at 12:16; Stop at 22:15; Status DC Ondansetron HCl (Zofran) 4 mg 1X ONCE IV Last administered on 07/04/16 12:33; Start 07/04/16 at 12:30; Stop 07/04/16 at 12:31; Status DC Ondansetron HCl (Zofran) 4 mg PRN Q8HRS PRN IV NAUSEA/VOMITING; Start 07/04/16 at 13:45; Stop 07/04/16 at 16:28; Status DC Fentanyl Citrate 50 mcg 50 mcg PRN Q2HR PRN IV PAIN; Start 07/04/16 at 13:45; Stop 07/05/16 at 13:44; Status DC Sodium Chloride (Iv Sodium Chloride 0.9% 1000ml Bag) 1,000 ml @ 100 mls/hr Q10H IV Last administered on 07/05/16 08:50; Start 07/04/16 at 13:45; Stop 02/11 at 13:44; Status DC Acetaminophen (Tylenol) 650 mg PRN Q4HRS PRN PO FEVER; Start 07/04/16 at 13:45; Stop 07/04/16 at 14:38; Status DC Acetaminophen (Tylenol) 650 mg PRN Q6HRS PRN PO MILD PAIN / TEMP Last administered on 07/06/16 04:45; Start 07/04/16 at 14:30 Ondansetron HCl (Zofran) 4 mg PRN Q6HRS PRN IV NAUSEA/VOMITING Last administered on 07/06/16 08:03; Start 07/04/16 at 14:30 Lisinopril (Prinivil) 40 mg DAILY PO ; Start 07/05/16 at 09:00; Stop 07/05/16 at 09:00; Status DC Amlodipine Besylate (Norvasc) 10 mg DAILY PO ; Start 07/05/16 at 09:00; Stop 02/11 at 09:00; Status DC Amlodipine Besylate (Norvasc) 10 mg DAILY PO Last administered on 07/04/16 19: 31; Start 07/04/16 at 15:00; Stop 07/05/16 at 08:25; Status DC Lisinopril (Prinivil) 40 mg DAILY PO Last administered on 07/06/16 08:04; Start 07/04/16 at 15:00 Pantoprazole Sodium (Protonix) 40 mg DAILYAC PO Last administered on 07/06/16 08:03; Start 07/05/16 at 07:30 Iohexol (Omnipaque 350 Mg/ml) 75 ml 1X ONCE IV Last administered on 07/04/16 17:03; Start 07/04/16 at 16:45; Stop 07/04/16 at 16:47; Status DC Info (Do NOT chart on this entry -- for MONITORING) 1 each PRN DAILY PRN MC SEE COMMENTS; Start 07/04/16 at 17:00; Stop 07/06/16 at 16:59 Potassium Chloride (Klor-Con) 40 meq 1X ONCE PO Last administered on 08:51; Start 07/05/16 at 09:00; Stop 07/05/16 at 09:01; Status DC Carvedilol (Coreg) 3.125 mg BIDWMEALS PO Last administered on 07/05/16 08:51; Start 07/05/16 at 09:00; Stop 07/05/16 at 09:58; Status DC Carvedilol (Coreg) 3.125 mg 1X ONCE PO Last administered on 07/05/16 10:18; Start 07/05/16 at 10:30; Stop 07/05/16 at 10:31; Status DC Carvedilol (Coreg) 6.25 mg BIDWMEALS PO Last administered on 07/06/16 08:03; Start 07/05/16 at 17:00; Stop 07/06/16 at 11:42; Status DC Hydrochlorothiazide (Microzide) 12.5 mg DAILY PO Last administered on 08:03; Start 07/05/16 at 10:30; Stop 07/06/16 at 11:42; Status DC Hydralazine HCl (Apresoline) 10 mg PRN Q4HRS PRN IVP ELEVATED BP, SEE COMMENTS Last administered on 07/06/16 11:33; Start 07/05/16 at 15:00 Carvedilol (Coreg) 12.5 mg BIDWMEALS PO ; Start 07/06/16 at 17:00 Hydrochlorothiazide (Hydrodiuril) 25 mg DAILY PO ; Start 07/07/16 at 09:00 Tramadol HCl (Ultram) 25 mg PRN Q6HRS PRN PO PAIN Last administered on t 12:19; Start 07/06/16 at 11:45 Active Scripts Active Reported No Known Medications Prior To Admisstion (Info) Each 1 Each Vitals/I & O Vital Sign - Last 24 Hours 07/05/16 07/05/16 07/05/16 07/05/16 15:00 15:01 16:00 16:58 Temp 99.0 98.1 99.0 98.1 Pulse 63 73 73 Resp 17 18 B/P 154/82 180/107 180/107 Pulse Ox 97 96 O2 Delivery Room Air Room Air 07/05/16 07/05/16 07/05/16 07/05/16 16:58 17:59 19:00 20:00 Temp 97.8 97.8 Pulse 73 84 87 Resp 18 B/P 180/107 167/109 172/108 Pulse Ox 99 98 O2 Delivery Room Air Room Air 07/05/16 07/05/16 07/06/16 07/06/16 22:19 23:00 03:00 04:50 Temp 98.3 98.3 98.3 98.3 Pulse 73 80 75 77 Resp 20 18 B/P 171/114 133/76 139/88 173/128 Pulse Ox 97 95 07/06/16 07/06/16 07/06/16 07/06/16 07:00 07:55 08:03 08:04 Temp 98.0 98.0 Pulse 76 77 77 Resp 20 B/P 149/95 173/128 173/128 Pulse Ox 97 O2 Delivery Room Air Room Air 07/06/16 07/06/16 07/06/16 11:00 11:33 12:19 Temp 98.0 98.0 Pulse 78 78 Resp 18 18 B/P 154/103 154/103 Pulse Ox 97 97 O2 Delivery Room Air Room Air Intake and Output 07/05/16 07/05/16 07/06/16 15:00 23:00 07:00 Intake Total 1245 ml 0 ml 700 ml Output Total 1000 ml Balance 245 ml 0 ml 700 ml CAMPBELL RAMIREZ MD Jul 06, 2016 14:29
[2016-07-06] MEDS ORDERED: HYDROCHLOROTHIAZIDE 12.5 MG CAPSULE. PO STA (14:30)
[2016-07-06] MEDS: AMLODIPINE BESYLATE 10 MG TABLET PO SCH (16:14)
--- NOTE | 2016-07-06 19:37 | RAD ---
PROCEDURE CT head without contrast 07/06/2016. HISTORY Follow-up intracranial hemorrhage. TECHNIQUE Noncontrast images were performed. Exposure: One or more of the following individualized dose reduction techniques were utilized for this exam: 1. Automated exposure control. 2. Adjustment of the mA and/or kV according to patient size. 3. Use of iterative reconstruction technique. COMPARISON 07/04/2016. FINDINGS Focal high density in the left thalamus has not changed appreciably. No new area of hemorrhage is seen. No new region of abnormal density is identified in the brain. There is no apparent abnormal extra-axial fluid collection. The sinuses and mastoid air cells are clear. IMPRESSION Stable appearance of small hemorrhage. No significant new findings. Electronically signed by: Abdirashid Wood (Jul 06, 2016 19:36:28)
[2016-07-07 03:00] VITALS: BP 119/71
[2016-07-07 05:44] LABS: CALCIUM 8.8 mg/dL (8.5-10.1); CREATININE 1.1 mg/dL (0.6-1.0); GFR 55.6; POTASSIUM 3.2 mmol/L (3.5-5.1)
[2016-07-07 07:00] VITALS: BP 149/92
[2016-07-07] MEDS: PANTOPRAZOLE 40 MG TABLET. PO SCH (07:36)
[2016-07-07] MEDS: CARVEDILOL 6.25 MG TABLET PO SCH (07:37)
[2016-07-07] MEDS ORDERED: ASPIRIN 81 MG TAB.CHEW PO SCH (08:00)
[2016-07-07] MEDS ORDERED: HYDROCHLOROTHIAZIDE 25 MG TABLET PO SCH (09:00)
[2016-07-07] MEDS: AMLODIPINE BESYLATE 10 MG TABLET PO SCH (09:07)
[2016-07-07] MEDS: LISINOPRIL 40 MG TABLET. PO SCH (09:07)
[2016-07-07] MEDS: TRAMADOL 50 MG TABLET. PO PRN (09:08)
[2016-07-07] MEDS ORDERED: POTASSIUM CHLORIDE 20 MEQ TABLET.ER. PO ONE (10:30)
[2016-07-07 11:00] VITALS: BP 141/90
--- NOTE | 2016-07-07 12:47 | PDOC3 ---
Discharge Summary [facility] Date of Admission: Jul 04, 2016 Discharge Date: Jul 07, 2016 Admitting Diagnosis left thalamus hemorrhagic stroke right side weakness, and numbness 2/2 to stroke HTN emergency obesity ckd3 hypokalemia Problems: Final Diagnosis Problems Medical Problems: (1) Hemorrhagic cerebrovascular accident (CVA) Status: Acute (2) Malignant hypertension Status: Acute CONSULTS neuro neurosx Brief Hospital Course Patient is a 40 year old female who presents with complaint of headache and right-sided pain that started yesterday. P pT HAS HTN ON 4meds before, but not taking it coz not seeing any pcp anymore. Colombian speaking. she started to have headache 3 ds ago, worse yesterday, with right side facial, arm and leg numbness, tingling, and weakness. speech, swallow is ok. + NAusea, no vomiting, + cough wo sputum. no fever, chills, diarrhea, constipation. PE right side weakness. BP >280 CT . 6 x 5 mm hemorrhage within the left thalamus with mild surrounding vasogenic edema. pt improved right side weakness, 4/5 now. headache is also better, BP better. dc home with coreg, amlodipine, lisinopril. start asa in 1 week as per neuro . dc time 35min. General: Alert, Oriented X3, Cooperative, No acute distress Heart: Regular rate, Normal S1, Normal S2, Other (4/6 sytolic murmur to LLS and [place] border; bounding peripheral pulses) Abdomen: Soft, No tenderness Extremities: No cyanosis, No edema. right side strength 4/5, left side 5/5 Skin: No breakdown, No significant lesion Patient History: FH: hypertension 33 FATHER 32 MOTHER Problems: Disposition home CONDITION AT DISCHARGE: Improved Diet low salt Miscellaneous Medications Info (No Known Medications Prior To Admisstion) 1 EACH MC (Reported) Follow Up pcp in 2 weeks CAMPBELL RAMIREZ MD Jul 07, 2016 12:47
[2016-07-07] MEDS ORDERED: AMLO10TA2 PO (12:53)
[2016-07-07] MEDS ORDERED: TRAM50TA PO (12:53)
[2016-07-07] MEDS ORDERED: LISI40TA PO (12:53)
[2016-07-07] MEDS ORDERED: ASPI81TA44 PO (12:53)
[2016-07-07] MEDS ORDERED: CARV6.252 PO (12:53)
--- NOTE | 2016-07-07 13:07 | PDOC ---
PROGRESS NOTES Assessment Problems Medical Problems: (1) Hemorrhagic cerebrovascular accident (CVA) Status: Acute (2) Malignant hypertension Status: Acute Acute small left thalamus 6 mm x 5 mm hemorrhage with surrounding vasogenic edema, making excellent recovery. Hypertensive encephalopathy. Note normal lipids, does not need statin Plan BP control, no higher than 150-160/90 mmHg. OT/OT: doesn't need after discharge Okay for discharge I told the patient to follow-up with neurology if she develops increasing headaches or other stroke symptoms, which I went over in detail I told the patient to start taking aspirin 81 mg daily starting one week from now She needs close follow-up by an internal medicine physician to monitor her blood pressure, and she understands this Subjective No complaints, wants to go home Objective Vital Signs Date Time Temp Pulse Resp B/P Pulse Ox O2 Delivery O2 Flow Rate FiO2 07/07/16 10:08 18 94 Room Air 07/07/16 09:07 88 119/71 07/07/16 07:00 98.8 98.8 Intake and Output 07/07/16 07:00 Intake Total 2150 ml Output Total 1400 ml Balance 750 ml Intake Oral 2150 ml Output Urine Total 1400 ml # Voids 1 PHYSICAL EXAM Alert. Oriented to time, place and person. PERRL. EOMI. CN: no focal findings. Muscle tone: normal. Muscle strength: 5/5 DTR: 2+ Plantar reflex: flexor Gait: normal. Sensory exam: no abnormal findings. No cerebellar signs elicited. Review of Relevant I have reviewed the following items luz maria (where applicable) has been applied. Labs Laboratory Tests Test 07/07/16 05:00 Sodium Level 140mmol/L (136-145) Potassium Level 3.2mmol/L (3.5-5.1) Chloride Level 102mmol/L (98-107) Carbon Dioxide Level 28mmol/L (21-32) Anion Gap 10 (6-14) Blood Urea Nitrogen 24mg/dL (7-20) Creatinine 1.1mg/dL (0.6-1.0) Estimated GFR (Cockcroft-Gault) 55.6 Glucose Level 109mg/dL (70-99) Calcium Level 8.8mg/dL (8.5-10.1) Laboratory Tests Test 07/07/16 05:00 Sodium Level 140mmol/L (136-145) Potassium Level 3.2mmol/L (3.5-5.1) Chloride Level 102mmol/L (98-107) Carbon Dioxide Level 28mmol/L (21-32) Anion Gap 10 (6-14) Blood Urea Nitrogen 24mg/dL (7-20) Creatinine 1.1mg/dL (0.6-1.0) Estimated GFR (Cockcroft-Gault) 55.6 Glucose Level 109mg/dL (70-99) Calcium Level 8.8mg/dL (8.5-10.1) Medications Current Medications Nicardipine HCl/ Sodium Chloride (Cardene/Iv Sodium Chloride 0.9% 250ml) 270 ml @ 0 mls/hr CONT PRN IV ELEVATED BP, SEE COMMENTS Last administered on 00:59; Start 07/04/16 at 12:15; Stop 07/06/16 at 14:29; Status DC Fentanyl Citrate 50 mcg 50 mcg PRN Q15MIN PRN IV PAIN GREATER THAN 3/10 Last administered on 07/04/16 17:57; Start 07/04/16 at 12:30; Stop 07/05/16 at 12:29; Status DC Sodium Chloride (Iv Sodium Chloride 0.9% 1000ml Bag) 1,000 ml @ 100 mls/hr Q10H IV Last administered on 07/04/16 12:34; Start 07/04/16 at 12:16; Stop at 22:15; Status DC Ondansetron HCl (Zofran) 4 mg 1X ONCE IV Last administered on 07/04/16 12:33; Start 07/04/16 at 12:30; Stop 07/04/16 at 12:31; Status DC Ondansetron HCl (Zofran) 4 mg PRN Q8HRS PRN IV NAUSEA/VOMITING; Start 07/04/16 at 13:45; Stop 07/04/16 at 16:28; Status DC Fentanyl Citrate 50 mcg 50 mcg PRN Q2HR PRN IV PAIN; Start 07/04/16 at 13:45; Stop 07/05/16 at 13:44; Status DC Sodium Chloride (Iv Sodium Chloride 0.9% 1000ml Bag) 1,000 ml @ 100 mls/hr Q10H IV Last administered on 07/05/16 08:50; Start 07/04/16 at 13:45; Stop 02/11 at 13:44; Status DC Acetaminophen (Tylenol) 650 mg PRN Q4HRS PRN PO FEVER; Start 07/04/16 at 13:45; Stop 07/04/16 at 14:38; Status DC Acetaminophen (Tylenol) 650 mg PRN Q6HRS PRN PO MILD PAIN / TEMP Last administered on 07/06/16 14:31; Start 07/04/16 at 14:30 Ondansetron HCl (Zofran) 4 mg PRN Q6HRS PRN IV NAUSEA/VOMITING Last administered on 07/06/16 08:03; Start 07/04/16 at 14:30 Lisinopril (Prinivil) 40 mg DAILY PO ; Start 07/05/16 at 09:00; Stop 07/05/16 at 09:00; Status DC Amlodipine Besylate (Norvasc) 10 mg DAILY PO ; Start 07/05/16 at 09:00; Stop 02/11 at 09:00; Status DC Amlodipine Besylate (Norvasc) 10 mg DAILY PO Last administered on 07/04/16 19: 31; Start 07/04/16 at 15:00; Stop 07/05/16 at 08:25; Status DC Lisinopril (Prinivil) 40 mg DAILY PO Last administered on 07/07/16 09:07; Start 07/04/16 at 15:00 Pantoprazole Sodium (Protonix) 40 mg DAILYAC PO Last administered on 07/07/16 07:36; Start 07/05/16 at 07:30 Iohexol (Omnipaque 350 Mg/ml) 75 ml 1X ONCE IV Last administered on 07/04/16 17:03; Start 07/04/16 at 16:45; Stop 07/04/16 at 16:47; Status DC Info (Do NOT chart on this entry -- for MONITORING) 1 each PRN DAILY PRN MC SEE COMMENTS; Start 07/04/16 at 17:00; Stop 07/06/16 at 16:59; Status DC Potassium Chloride (Klor-Con) 40 meq 1X ONCE PO Last administered on 08:51; Start 07/05/16 at 09:00; Stop 07/05/16 at 09:01; Status DC Carvedilol (Coreg) 3.125 mg BIDWMEALS PO Last administered on 07/05/16 08:51; Start 07/05/16 at 09:00; Stop 07/05/16 at 09:58; Status DC Carvedilol (Coreg) 3.125 mg 1X ONCE PO Last administered on 07/05/16 10:18; Start 07/05/16 at 10:30; Stop 07/05/16 at 10:31; Status DC Carvedilol (Coreg) 6.25 mg BIDWMEALS PO Last administered on 07/06/16 08:03; Start 07/05/16 at 17:00; Stop 07/06/16 at 11:42; Status DC Hydrochlorothiazide (Microzide) 12.5 mg DAILY PO Last administered on 08:03; Start 07/05/16 at 10:30; Stop 07/06/16 at 11:42; Status DC Hydralazine HCl (Apresoline) 10 mg PRN Q4HRS PRN IVP ELEVATED BP, SEE COMMENTS Last administered on 07/06/16 15:38; Start 07/05/16 at 15:00 Carvedilol (Coreg) 12.5 mg BIDWMEALS PO Last administered on 07/07/16 07:37; Start 07/06/16 at 17:00 Hydrochlorothiazide (Hydrodiuril) 25 mg DAILY PO Last administered on 09:08; Start 07/07/16 at 09:00; Stop 07/07/16 at 09:39; Status DC Tramadol HCl (Ultram) 25 mg PRN Q6HRS PRN PO MODERATE - SEVERE PAIN Last administered on 07/07/16 09:08; Start 07/06/16 at 11:45 Hydrochlorothiazide (Microzide) 12.5 mg 1X STAT PO Last administered on 14:32; Start 07/06/16 at 14:30; Stop 07/06/16 at 14:31; Status DC Amlodipine Besylate (Norvasc) 10 mg DAILY PO Last administered on 07/07/16 09: 07; Start 07/06/16 at 16:30 Hydrochlorothiazide (Microzide) 12.5 mg DAILY PO ; Start 07/08/16 at 09:00 Potassium Chloride (Klor-Con) 40 meq 1X ONCE PO Last administered on t 10:27; Start 07/07/16 at 10:30; Stop 07/07/16 at 10:31; Status DC Aspirin (Children'S Aspirin) 81 mg DAILYWBKFT PO ; Start 07/07/16 at 08:00 Active Scripts Active Tramadol Hcl 50 Mg Tablet 25 Mg PO PRN Q6HRS PRN Lisinopril 40 Mg Tablet 40 Mg PO DAILY Carvedilol 6.25 Mg Tablet 12.5 Mg PO BIDWMEALS Children's Aspirin (Aspirin) 81 Mg Tab.chew 81 Mg PO DAILYWBKFT Amlodipine Besylate 10 Mg Tablet 10 Mg PO DAILY Vitals/I & O Vital Sign - Last 24 Hours 07/06/16 07/06/16 07/06/16 07/06/16 15:00 15:38 16:14 16:55 Temp 98.0 98.0 Pulse 85 85 85 85 Resp 20 B/P 164/114 164/114 164/114 164/114 Pulse Ox 98 O2 Delivery Room Air 07/06/16 07/06/16 07/06/16 07/06/16 17:43 19:00 20:03 22:31 Temp 98.3 98.5 98.3 98.5 Pulse 76 79 81 Resp 20 18 18 B/P 147/87 135/89 117/72 Pulse Ox 96 96 O2 Delivery Room Air Room Air Room Air Room Air 07/07/16 07/07/16 07/07/16 07/07/16 03:00 07:00 07:30 07:37 Temp 99.0 98.8 99.0 98.8 Pulse 88 67 88 Resp 18 22 B/P 119/71 149/92 119/71 Pulse Ox 94 98 O2 Delivery Room Air Room Air Room Air 07/07/16 07/07/16 07/07/16 07/07/16 09:07 09:07 09:08 10:08 Pulse 88 88 Resp 18 18 B/P 119/71 119/71 Pulse Ox 94 94 O2 Delivery Room Air Room Air Intake and Output 07/06/16 07/06/16 07/07/16 15:00 23:00 07:00 Intake Total 1170 ml 480 ml 500 ml Output Total 800 ml 600 ml Balance 370 ml -120 ml 500 ml ROBERT KAUFMAN MD Jul 07, 2016 13:07
--- NOTE | 2016-07-08 03:48 | CONS ---
DATE OF CONSULTATION: 07/05/2016 REASON FOR CONSULTATION: Intraparenchymal hemorrhage. HISTORY OF PRESENT ILLNESS: The patient is a pleasant 40-year-old woman who developed acutely right-sided numbness the day prior to being seen in the Emergency Room. She has a history of hypertension and had stopped taking her medications and then she developed headache for about 3 days, which became very severe. Following this, she noted the numbness involving her right face, especially her right side of her lips and cheek as well as her right shoulder, arm and leg. She said that there was no problem with her speech, swallowing nor any other problems such as weakness or problems with balance or coordination. She in the Emergency Room had a significant elevation of her blood pressure and on CT scan of the head, a small focal hemorrhage was seen in the left thalamus. PAST MEDICAL HISTORY: There is history of hypertension. PAST SURGICAL HISTORY: . PERSONAL HISTORY: She does not smoke or drink alcohol. CURRENT MEDICATIONS: Other than the antihypertensive medication she takes no medications. ALLERGIES: No known allergies to drugs. REVIEW OF SYSTEMS: A 10-point review of systems was performed and was negative other than outlined above. PHYSICAL EXAMINATION: GENERAL: She is pleasant, alert, and cooperative, in no distress. HEENT: Normocephalic, atraumatic. NECK: Supple. NEUROLOGIC: Examination of her cranial nerves, her pupils were equal and reactive to light with normal extraocular motor function. Facial motor examination was normal. On facial sensory examination, there was decrease in light touch involving the right side of her lips and the adjacent cheek. Her lower cranial nerves were intact. On motor exam, her strength was 5/5 in upper and lower extremities bilaterally. On sensory examination, she is intact to light touch in the upper and lower extremities bilaterally with 1+ reflexes without pathologic reflexes. On the remainder of examination she had full range of motion of upper and lower extremities bilaterally. LABORATORY DATA: I reviewed a CT scan of the head, on that study, there is a 6.5 mm hemorrhage in the left thalamus with very mild surrounding edema. A CTA was performed, which did not show any significant intracranial stenosis, aneurysm or AVM. IMPRESSION: The patient suffered a hypertensive left thalamic hemorrhage. I think this will be a self-limiting problem, clearly no surgery is indicated for this abnormality. I discussed all this with the family. I appreciate asking me to see her. NEENA Holly JANE MD DR: ELIANE/sapphire JOB#: [id number] / [id number] SAVANNAH
[2016-07-08] MEDS ORDERED: HYDROCHLOROTHIAZIDE 12.5 MG CAPSULE. PO SCH (09:00)
== END 2016-07-07 15:45 | disposition home or self-care (01) | DRG 64 ==
LOC: ER 11:37 → 2 NORTH 12:31 → 1 WEST ICU 14:37 → 5 SOUTH 07-05 16:30
PROVIDERS: ADMIT Internal Medicine; ATTEND Internal Medicine
DX: I61.8 Other nontraumatic intracerebral hemorrhage (principal); G93.6 Cerebral edema; Z68.41 Body mass index [BMI] 40.0-44.9, adult; I16.1 Hypertensive emergency; I67.4 Hypertensive encephalopathy; E87.6 Hypokalemia; E66.9 Obesity, unspecified; N18.3 Chronic kidney disease, stage 3 (moderate); I13.10 Hypertensive heart and chronic kidney disease without heart failure, with stage 1 through stage 4 chronic kidney disease, or unspecified chronic kidney disease; Z82.49 Family history of ischemic heart disease and other diseases of the circulatory system
CPT/HCPCS: 36415; 70450; 70496; 71010; 80048; 80061; 80076; 81001; 81025; 82553; 83735; 83880; 84443; 84484; 85027; 85610; 87641; 93005; 93306; 93880; 93975; 96361; 96374; G0481; J0360; J2405; J3010; J7030; J7050; Q9967; 99285-25